=== PATIENT | female | born 1985 | race Caucasian/White ===

== ENCOUNTER 2020-07-02 17:16 | Emergency (ER) | payer OTHER, SELFPAY ==
--- NOTE | 2020-07-02 17:21 | ED.URI ---
HPI - URI/Sore Throat General Chief Complaint: Upper Respiratory Infection Stated Complaint: COUGH/CONGESTION/TIGHT CHEST Source: patient and RN notes reviewed Limitations: no limitations History of Present Illness HPI Narrative: The patient-- a smoker/nondrinker here with other sick, febrile [100F] family members-- presents with cough. Patient states boyfriend, roommates and she has 1/2-week history of nasal congestion and cough. No fever, vomiting/diarrhea, loss of taste/smell, wheezing, CP, travel, shortness of breath. She has not had Covid vaccination; symptoms are mild, worse at night Related Data Allergies Allergy/AdvReac Type Severity Reaction Status Date / Time Sulfa (Sulfonamide Allergy Unknown unknown Verified 07/02/20 17:22 Antibiotics) Review of Systems Review of Systems: Narrative: General/Constitutional: No weight loss,fever Eyes: N0: Redness,discharge Ears/Nose/Throat: No: Epistaxis,ear discharge Respiratory: Denies: Hemoptysis Gastrointestinal: No Vomiting, Bleeding-rectal Skin: No Lumps, eruption Neurologic: No Focal Weakness,Sz Hematologic: Denies: Petechiae/Purpura Psychiatric: No: Suicida ideationl All Other Systems: Reviewed and Negative PMFSH Past Medical History Medical History ADD (attention deficit disorder) ADHD Anxiety Diabetes Gestational HTN No pertinent family history Vaginal delivery Surgical History Surgical History Hx of tonsillectomy Social History Social History Smoking status: Current every day smoker Tobacco type: cigarettes Second hand tobacco smoke exposure: Yes Alcohol intake: never Substance use: former Substance use type: marijuana Gender identity (if verbalized by the patient): Female Spiritual care concerns: No Agree to blood products: Yes Comments At time of signature, agree with nursing past medical, surgical, social and family history. There is no relevant family history pertinent to the presenting complaint Exam Narrative: Exam Narrative: General Appearance: Well appearing, overweight/well nourished EYE: PERRLA, Conjunctiva clear Ears: Auditory canal normal, TM normal Nose: Rhinorrhea, Mucousal erythema Mouth/Throat: MM moist, Uvula midline, Pharyngeal erythema Neck: Supple, No adenopathy Respiratory: No respiratory distress, Breath sounds equal, Clear to auscultation Cardiovascular: RRR, No JVD Musculoskeletal: Non tender, Normal strength Skin: Warm, Dry Neurological: A&O x3, CN II-XII intact Psychiatric: Normal mood, Normal affect Course Vital Signs Vital signs: Vital Signs Temperature 98.7 F 07/02/20 17:22 Pulse Rate 94 07/02/20 17:22 Respiratory Rate 16 07/02/20 17:22 Blood Pressure 110/87 07/02/20 17:22 Pulse Oximetry 99 07/02/20 17:22 Temperature 98.7 F 07/02/20 17:22 Pulse Rate 94 07/02/20 17:22 Respiratory Rate 16 07/02/20 17:22 Blood Pressure 110/87 07/02/20 17:22 Pulse Oximetry 99 07/02/20 17:22 MDM - URI/Sore Throat Lab Data Labs: Lab Results 07/02/20 Range/Units 17:31 POC SARS CoV-2 Ag Negative (Negative) Influenza A Screen Negative Reference Range: Negative Influenza B Screen Negative Reference Range: Negative Discharge Plan Discharge Clinical Impression: Upper respiratory infection Patient Disposition: Home, Self-Care Condition: Stable Instructions: Antibiotic Form, Acute Bronchitis (ED) Additional Instructions: You may try OTC preparations like Flonase, Mucinex, etc. Also consider OTC supplements like vitamins jayce D,and B, C, zinc Prescriptions: New codeine-guaifenesin 10-100 mg/5 mL liquid 7.5 ml PO Q6H PRN
[2020-07-02 17:22] VITALS: BP 110/87; PULSE 94; RESP 16; TEMP 37.1; O2SAT 99
== END 2020-07-02 18:14 | disposition home or self-care (01) ==
PROVIDERS: Emergency Provider Emergency Medicine; PCP Family Medicine
DX: J06.9 Acute upper respiratory infection, unspecified (principal); Z20.822 Contact with and (suspected) exposure to COVID-19; F17.200 Nicotine dependence, unspecified, uncomplicated; E11.9 Type 2 diabetes mellitus without complications; F90.9 Attention-deficit hyperactivity disorder, unspecified type
CPT/HCPCS: 87426; 87804; 99213; C9803; G0463

== ENCOUNTER → 2020-07-18 06:28 | Outpatient (CLI) | payer OTHER, SELFPAY ==
[2020-07-21 12:03] LABS: SARS-CoV-2 RNA PCR Positive
== END ==
PROVIDERS: Emergency Medicine; PCP Family Medicine; Visit Provider Family Medicine
DX: U07.1 COVID-19 (principal); J40 Bronchitis, not specified as acute or chronic; R05 Cough
CPT/HCPCS: C9803; U0003; U0005

== ENCOUNTER 2020-09-02 21:17 | Emergency (ER) | payer OTHER, SELFPAY ==
--- NOTE | ~2020-09-02 | XR_ITS ---
EXAMINATION: XR chest 2V 09/02/2020 22:13 INDICATION: Cough and chest pain PROCEDURE: 2 view chest COMPARISON: 12/05/2015 FINDINGS: The lungs are clear. The cardiomediastinal silhouette is within normal limits. There are no pleural effusions. There is no pneumothorax suspected. IMPRESSION: 1: NO ACUTE CARDIOPULMONARY DISEASE. Reviewed, dictated and finalized at location A.
[2020-09-02 21:33] VITALS: BP 125/92; PULSE 98; RESP 18; TEMP 37.1; O2SAT 100
[2020-09-02 21:37] VITALS: BP 139/84; PULSE 95; RESP 16; TEMP 36.8; O2SAT 98
--- NOTE | 2020-09-02 22:25 | ED.GENADULT ---
HPI - General Adult General Chief complaint: Shortness of Breath/Dyspnea Stated complaint: i think i have pneumonia Time Seen by Provider: 09/02/20 21:52 Source: patient Mode of arrival: ambulatory Limitations: no limitations History of Present Illness HPI narrative: 35-year-old with no major medical problems chronic marijuana smoker here with complaints of left-sided chest pain started few days ago. Patient states every time she moves or coughs she has pain in the left side of her chest. She denies any shortness of breath. No history of fever. She states that she had Covid in June. Onset (ago): day(s) (3) Radiation: back Severity: mild Quality: aching Pain Consistency: constant Relieving factors: none Exacerbating factors: movement Associated symptoms: denies other symptoms Related Data Allergies Allergy/AdvReac Type Severity Reaction Status Date / Time Sulfa (Sulfonamide Allergy Unknown unknown Verified 09/02/20 21:39 Antibiotics) Review of Systems Review of Systems: All systems reviewed & are unremarkable except as noted in HPI and below Constitutional: Constitutional: Reports no additional constitutional complaints Eyes: Eyes: Reports no additional eye complaints ENT: Reports system reviewed and no additional complaints, except as documented Cardiovascular: Cardiovascular: Reports no additional cardiovascular complaints Respiratory: Respiratory: Reports as per HPI Gastrointestinal: Gastrointestinal: Reports no additional gastrointestinal complaints PMFSH Past Medical History Medical History ADD (attention deficit disorder) ADHD Anxiety Diabetes Gestational HTN No pertinent family history Vaginal delivery Surgical History Surgical History Hx of tonsillectomy Social History Social History Smoking status: Current every day smoker Tobacco type: cigarettes Second hand tobacco smoke exposure: Yes Alcohol intake: never Substance use: former Substance use type: marijuana Gender identity (if verbalized by the patient): Female Spiritual care concerns: No Agree to blood products: Yes Exam Narrative: Exam Narrative: GENERAL: Well-appearing, well-nourished, and in no acute distress. HEAD: Normocephalic, atraumatic. EYES: PERRLA and EOMI.. NECK: Supple. CHEST: No respiratory distress. Coarse breath sounds bilaterally HEART: Regular rate and rhythm. No murmur heard. Normal peripheral pulses. EXTREMITIES: Normal range of motion. No edema. SKIN: Warm, dry, no rash. NEURO: No focal deficits. Alert and oriented x3. PSYCH: Normal mood and affect. Course Course Emergency Course: Inform patient about her chest x-ray. Her pain most likely is musculoskeletal at this time. Advised her to take pain medication as prescribed. Vital Signs Vital signs: Vital Signs Temperature 37.1 C 09/02/20 21:33 Pulse Rate 98 09/02/20 21:33 Respiratory Rate 18 09/02/20 21:33 Blood Pressure 125/92 H 09/02/20 21:33 Pulse Oximetry 100 09/02/20 21:33 Temperature 36.8 C 09/02/20 21:37 Pulse Rate 95 09/02/20 21:37 Respiratory Rate 16 09/02/20 21:37 Blood Pressure 139/84 09/02/20 21:37 Pulse Oximetry 98 09/02/20 21:37 Medical Decision Making Vital Signs Vital Signs: Vital Signs Temperature 37.1 C 09/02/20 21:33 Pulse Rate 98 09/02/20 21:33 Respiratory Rate 18 09/02/20 21:33 Blood Pressure 125/92 H 09/02/20 21:33 Pulse Oximetry 100 09/02/20 21:33 Temperature 36.8 C 09/02/20 21:37 Pulse Rate 95 09/02/20 21:37 Respiratory Rate 16 09/02/20 21:37 Blood Pressure 139/84 09/02/20 21:37 Pulse Oximetry 98 09/02/20 21:37 Imaging Data My impression: No acute findings Radiologist's impression: ITS Impressions Chest X-Ray 09/02/20 22:15 IMPRESSION: 1: NO ACUTE CARD
[2020-09-02 22:40] VITALS: BP 125/85; PULSE 84; RESP 16; O2SAT 99
== END 2020-09-02 22:42 | disposition home or self-care (01) ==
PROVIDERS: Emergency Provider Family Medicine; PCP Family Medicine
DX: R07.89 Other chest pain (principal); E11.9 Type 2 diabetes mellitus without complications; Z86.16 Personal history of COVID-19; F90.9 Attention-deficit hyperactivity disorder, unspecified type; F41.9 Anxiety disorder, unspecified; F17.210 Nicotine dependence, cigarettes, uncomplicated
CPT/HCPCS: 71046; 99283

== ENCOUNTER 2021-12-07 17:07 | Emergency (ER) | payer OTHER, SELFPAY ==
[2021-12-07 17:25] VITALS: BP 134/83; PULSE 84; RESP 16; TEMP 36.3; O2SAT 100
--- NOTE | 2021-12-07 18:51 | ED.URI ---
HPI - URI/Sore Throat General Chief Complaint: Upper Respiratory Infection Stated Complaint: coughing, painful breathing, congestion Time Seen by Provider: 12/07/21 18:50 Source: patient Mode of arrival: ambulatory Limitations: no limitations History of Present Illness HPI Narrative: 36-year-old female who presents to [facility] care with complaints of 3-day history of congestion increased cough no fever some tightness in chest with inspiration and increased cough when she lies flat at night. Patient is a daily tobacco user and also smokes marijuana. Patient reports that she had COVID in June of 2019, has not had COVID vaccination or flu shot. MD elicited complaint: cough Pertinent past history: other (tobacco and marijuana use daily) Onset (ago): day(s) (3) Exacerbating factors: exertion and supine positioning Treatments prior to arrival: none Related Data Allergies Allergy/AdvReac Type Severity Reaction Status Date / Time Sulfa (Sulfonamide Allergy Unknown unknown Verified 12/07/21 17:24 Antibiotics) Review of Systems Review of Systems: CONSTITUTIONAL: Denies malaise, chills, sweats, or fever. EYES: Denies visual changes, redness, or discharge. ENT: Reports rhinorrhea, congestion,no sinus pain, otalgia and sore throat. CARDIOVASCULAR: Denies chest pain, palpitations, or edema. RESPIRATORY: Reports cough.? reports some tightness to chest with cough and increased cough when laying supine. GASTROINTESTINAL: Denies abdominal pain, nausea, vomiting, diarrhea SKIN: Denies rash or itching. MUSCULOSKELETAL: Denies myalgia. NEUROLOGIC: Denies headache. All systems reviewed & are unremarkable except as noted in HPI and below PMFSH Past Medical History Medical History ADD (attention deficit disorder) ADHD Anxiety Diabetes Gestational HTN No pertinent family history Vaginal delivery Surgical History Surgical History Hx of tonsillectomy Social History Social History (Updated 12/10/21 @ 10:56 by Viri Jacobson NP) Smoking status: Current every day smoker Tobacco type: cigarettes Second hand tobacco smoke exposure: Yes Alcohol intake: never Substance use: current Substance use type: marijuana Living arrangements: with family Gender identity (if verbalized by the patient): Female Sexual Orientation (if Verbalized by the Patient): Straight or Heterosexual Spiritual care concerns: No Agree to blood products: Yes Comments At time of signature, agree with nursing past medical, surgical, social and family history. There is no relevant family history pertinent to the presenting complaint Exam Narrative: GENERAL: Well-appearing, well-nourished, and in no acute distress. HEAD: Normocephalic EYES: PERRLA, conjunctivae clear ENT: Nares clear, turbinates edematous and erythematous, clear discharge. Mucous membranes moist. TM pearly benito with dull light reflex bilaterally; no tragal tenderness. Oropharynx erythematous without lesions.no tonsils present, no drooling, no hoarseness, no trismus, uvula midline.post nasal discharge noted NECK: Supple. No lymphadenopathy CHEST: Clear to auscultation, breath sounds equal. some wheezing,no rhonchi, rales, or stridor. No respiratory distress, speaks in full sentences.no tachypnea SAO2 100% on room air HEART: Regular rate and rhythm. No murmur heard. SKIN: Warm, dry, no rash. NEURO: Alert and oriented x3. PSYCH: Normal mood and affect Course Course Emergency Course: Patient is aware of diagnosis, understands and agrees to treatment plan.? Anticipatory guidance given.? Patient agrees to follow-up as directed and is aware of reasons to seek care at the emergency department. Portions of this record may have been created with voice recognition software Level of Care: Express Care Visit Vital Signs Vital signs: Vital Signs
== END 2021-12-07 19:24 | disposition home or self-care (01) ==
PROVIDERS: Emergency Provider Registered Nurse; PCP Family Medicine
DX: J40 Bronchitis, not specified as acute or chronic (principal); Z20.822 Contact with and (suspected) exposure to COVID-19; F17.210 Nicotine dependence, cigarettes, uncomplicated; E11.9 Type 2 diabetes mellitus without complications
CPT/HCPCS: 87426; 99213; C9803; G0463

== ENCOUNTER 2022-02-01 11:30 | Emergency (ER) | payer OTHER, SELFPAY ==
[2022-02-01 12:53] VITALS: BP 139/69; PULSE 90; RESP 20; TEMP 36.2; O2SAT 100
--- NOTE | 2022-02-01 13:28 | ED.URI ---
HPI - URI/Sore Throat General Chief Complaint: Upper Respiratory Infection Stated Complaint: diarrhea,cough,vomiting Time Seen by Provider: 02/01/22 13:28 Source: patient Mode of arrival: ambulatory Limitations: no limitations History of Present Illness HPI Narrative: 36-year-old female presents with complaint of nasal congestion, sore throat, cough, headaches and body aches for 2-3 days. Also reports nausea with diarrhea. No vomiting. Eating and drinking normally. Has been fatigued and sleeping more than usual. States [id number] cough medications not helping. Has felt feverish at home but does not have thermometer to check temperature. Patient well-appearing and talkative. All systems reviewed and negative except as noted above. Related Data Allergies Allergy/AdvReac Type Severity Reaction Status Date / Time Sulfa (Sulfonamide Allergy Unknown unknown Verified 12/07/21 17:24 Antibiotics) Review of Systems Review of Systems: CONSTITUTIONAL: Denies fever, chills, or sweats. Reports fatigue. EYES: Denies visual changes, redness, or discharge. ENT: Reports rhinorrhea, congestion, sore throat. Deniesotalgia. CARDIOVASCULAR: Denies chest pain, palpitations, or edema. RESPIRATORY: reports cough. Deniesdyspnea. GASTROINTESTINAL: Denies abdominal pain, nausea, vomiting. Reports diarrhea. GENITOURINARY: Denies dysuria or hematuria. SKIN: Denies rash or itching. MUSCULOSKELETAL: Denies back pain, joint pain, or myalgia. NEUROLOGIC: Denies headache, numbness, or weakness. PSYCHIATRIC: Denies anxiety or depression. All other systems reviewed are negative, except as documented in HPI. [facility] Past Medical History Medical History ADD (attention deficit disorder) ADHD Anxiety Diabetes Gestational HTN No pertinent family history Vaginal delivery Surgical History Surgical History Hx of tonsillectomy Social History Social History (Updated 12/10/21 @ 10:56 by Viri Jacobson NP) Smoking status: Current every day smoker Tobacco type: cigarettes Second hand tobacco smoke exposure: Yes Alcohol intake: never Substance use: current Substance use type: marijuana Gender identity (if verbalized by the patient): Female Sexual Orientation (if Verbalized by the Patient): Straight or Heterosexual Spiritual care concerns: No Agree to blood products: Yes Comments At time of signature, agree with nursing past medical, surgical, social and family history. There is no relevant family history pertinent to the presenting complaint. Exam Narrative: GENERAL: This is a well-nourished, well-developed patient, in no apparent distress. HEAD: normocephalic, atraumatic. EYES: PERRL. Sclera clear/white. Vision is grossly intact. EARS: External ears normal, auditory canals clear and without drainage, TMs normal without perforation. Hearing grossly intact. NOSE: External nose normal with mild congestion, erythema and swelling to both nares. THROAT: Mucous membranes moist, Mild erythema to posterior pharynx. NECK: Neck supple, non-tender without lymphadenopathy, masses or thyromegaly. CARDIOVASCULAR: Regular rate and rhythm without murmurs, gallops, or rubs. RESPIRATORY: Clear to auscultation. Breath sounds equal bilaterally. No wheezes, rales, or rhonchi. GASTROINTESTINAL: Abdomen soft, non-tender, nondistended. Bowel sounds are active. No hepato-splenomegaly, or palpable masses. No guarding. SKIN: warm, Dry, intact with no suspicious lesions or rash, good texture and turgor. NEURO: awake, alert, and oriented to person, place and time. There were no obvious focal neurologic abnormalities. EXTREMITIES: No joint tenderness, effusion, or edema noted. Course Course Level of Care: Express Care Visit Vital Signs Vital signs: Vital Signs Temperature 36.2 C L 02/01/22 12:53 Pulse Rate 90
== END 2022-02-01 13:45 | disposition home or self-care (01) ==
PROVIDERS: Emergency Provider Nurse Practitioner Family
DX: B34.9 Viral infection, unspecified (principal); Z20.822 Contact with and (suspected) exposure to COVID-19
CPT/HCPCS: 87426; 99213; C9803; G0463

== ENCOUNTER 2022-07-14 16:04 | Emergency (ER) | payer OTHER, SELFPAY ==
[2022-07-14 16:12] VITALS: BP 123/98; PULSE 89; RESP 16; TEMP 36.8; O2SAT 100
--- NOTE | 2022-07-14 16:20 | ED.URI ---
HPI - URI/Sore Throat General Chief Complaint: Upper Respiratory Infection Stated Complaint: Sore Throat Time Seen by Provider: 07/14/22 16:21 Source: patient Mode of arrival: ambulatory Limitations: no limitations History of Present Illness HPI Narrative: Patient is a 37-year-old female who presents cough and congestion for 3 days. Patient has taken Tylenol and ibuprofen for symptoms with no relief. States she does vape. Cough is worse in the evening. Denies any fever, chills, nausea, vomiting, diarrhea, ear pain, sinus pressure, sore throat. Patient states significant other was recently ill and given antibiotics. Unsure why he was sick with. Related Data Allergies Allergy/AdvReac Type Severity Reaction Status Date / Time Sulfa (Sulfonamide AdvReac Mild Hives Verified 07/14/22 16:12 Antibiotics) Review of Systems Review of Systems: All systems reviewed & are unremarkable except as noted in HPI and below Constitutional: Constitutional: Denies body ache(s), Denies chills, Denies fatigue, Denies fever(s), Denies headache(s), Denies malaise and Denies weakness Eyes: Eyes: Denies blurry vision, Denies itchy eyes and Denies loss of vision ENT: Denies otalgia, Denies headache(s), Reports nasal congestion, Denies sinus pain and Denies sore throat Cardiovascular: Cardiovascular: Denies chest pain, Denies irregular heart rhythm and Denies dyspnea Respiratory: Respiratory: Reports cough and Denies dyspnea Gastrointestinal: Gastrointestinal: Denies abdominal pain, Denies diarrhea, Denies nausea and Denies vomiting Musculoskeletal: Musculoskeletal: Denies back pain, Denies myalgias and Denies arthralgias Integumentary/Breasts: Skin/Breast: Denies pruritus and Denies rash Neurologic: Denies headache(s), Denies loss of vision and Denies weakness Psychiatric: Psychiatric: Reports no additional psychiatric complaints Endocrine: Endocrine: Denies fatigue Allergic/Immunologic: Allergic/Immunologic: Denies itchy eyes PMFSH Past Medical History Medical History (Updated 07/14/22 @ 16:57 by Otilia Pavon APRN) ADD (attention deficit disorder) ADHD Anxiety Gestational HTN No pertinent family history Vaginal delivery Surgical History Surgical History Hx of tonsillectomy Family History Family History (Updated 06/15/22 @ 09:45 by Vanna Chandler MA) Grandparent Heart disease Social History Social History (Updated 06/15/22 @ 09:47 by Vanna Chandler MA) Smoking status: Current every day smoker Tobacco type: e-cigarettes/vaping Second hand tobacco smoke exposure: Yes Smoking end date: 05/12/22 Alcohol intake: current Alcohol use details: rarely Substance use: current Substance use type: marijuana Lack of Transportation: No Lack of Food: Sometimes True Current Housing: I Do Not Have Housing Concerned About Future Housing: No Difficulty Paying Gas/Electric Bills: No Difficulty Paying for Meds: No Currently Unemployed: No Education: High School Diploma/GED Difficulty w/ Childcare or Family Care: No Living arrangements: with family Additional living arrangements comments: Grandparents Occupation/Education: unemployed Gender identity (if verbalized by the patient): Female Sexual Orientation (if Verbalized by the Patient): Straight or Heterosexual Spiritual care concerns: No Agree to blood products: Yes Comments At time of signature, agree with nursing past medical, surgical, social and family history. There is no relevant family history pertinent to the presenting complaint. Exam Const: General: cooperative, healthy appearing, comfortable, no acute distress and well nourished Nutritional Appearance: well nourished Orientation/consciousness: patient oriented x3 Limitations: no limitations HENMT: Head: normal to inspection, normocephalic and atraumatic Ears: hearing grossly normal bilaterally, external
== END 2022-07-14 17:02 | disposition home or self-care (01) ==
PROVIDERS: Emergency Provider Nurse Practitioner Family; PCP Internal Medicine
DX: J06.9 Acute upper respiratory infection, unspecified (principal); F17.290 Nicotine dependence, other tobacco product, uncomplicated; F12.90 Cannabis use, unspecified, uncomplicated
CPT/HCPCS: 99213; G0463

== ENCOUNTER 2022-08-05 14:42 | Outpatient (CLI) | payer OTHER, SELFPAY ==
[2022-08-05 15:57] LABS: HIV 1/2 Ab P24 Ag Result Negative (Negative)
[2022-08-05 16:37] LABS: Hepatitis B Surface Antigen Negative (Negative)
[2022-08-05 16:55] LABS: Hepatitis C Virus Antibody Negative (Negative)
[2022-08-08 16:55] LABS: Rapid Plasma Reagin Non-Reactive (NonReactive)
[2022-08-12 18:01] LABS: HSV 1 IgM Screen Negative (Negative); HSV 2 IgM Screen Negative (Negative)
== END 2022-08-05 14:43 | disposition home or self-care (01) ==
LOC: ANHLAB 14:44
PROVIDERS: PCP Internal Medicine; Visit Provider Registered Nurse
DX: N89.8 Other specified noninflammatory disorders of vagina (principal)
CPT/HCPCS: 36415; 86592; 86695; 86696; 86703; 86803; 87340; G0432

== ENCOUNTER 2022-11-19 09:27 | Emergency (ER) | payer OTHER, SELFPAY ==
[2022-11-19 09:38] VITALS: BP 108/86; PULSE 82; RESP 18; TEMP 36.6; O2SAT 99
[2022-11-19 09:39] VITALS: BP 108/86; PULSE 82; RESP 18; TEMP 36.6; O2SAT 99
--- NOTE | 2022-11-19 09:50 | ED.GENADULT ---
HPI - General Adult General Chief complaint: Ear Stated complaint: Lt Ear Irritation Time Seen by Provider: 11/19/22 09:51 Source: patient, RN notes reviewed and old records reviewed Mode of arrival: ambulatory Limitations: no limitations History of Present Illness HPI narrative: 37-year-old female presents to the [facility] with left ear irritation that started 3 days ago. Reports pain. States she has been using Q-tips to keep her ears clean of wax. Patient also reports lateral swelling to the left ankle that she states that she sprained about a month ago on the 22 of October. Mild swelling noted. No ecchymosis or erythema. Full range of motion, positive pedal pulse, capillary refill under 2 seconds as well as sensation intact in all 5 toes Related Data Allergies Allergy/AdvReac Type Severity Reaction Status Date / Time Sulfa (Sulfonamide AdvReac Mild Hives Verified 11/19/22 09:38 Antibiotics) Review of Systems Review of Systems: All systems reviewed & are unremarkable except as noted in HPI and below Constitutional: Constitutional: Reports no additional constitutional complaints Eyes: Eyes: Reports no additional eye complaints ENT: Reports as per HPI Cardiovascular: Cardiovascular: Reports no additional cardiovascular complaints, Denies chest pain and Denies dyspnea Respiratory: Respiratory: Reports no additional respiratory complaints, Denies chest congestion, Denies cough and Denies dyspnea Gastrointestinal: Gastrointestinal: Reports no additional gastrointestinal complaints, Denies abdominal pain, Denies nausea and Denies vomiting Musculoskeletal: Musculoskeletal: Reports as per HPI Integumentary/Breasts: Skin/Breast: Reports system reviewed and no additional complaints, except as docu Neurologic: Reports system reviewed and no additional complaints, except as documented Psychiatric: Psychiatric: Reports no additional psychiatric complaints Allergic/Immunologic: Allergic/Immunologic: Reports no additional allergic/immunologic complaints [facility] Past Medical History Medical History ADD (attention deficit disorder) ADHD Anxiety Gestational HTN HSV-2 (herpes simplex virus 2) infection Vaginal delivery Surgical History Surgical History Hx of tonsillectomy Family History Family History Grandparent Heart disease Social History Social History Smoking status: Current every day smoker Tobacco type: e-cigarettes/vaping Second hand tobacco smoke exposure: Yes Smoking end date: 05/12/22 Alcohol intake: current Alcohol use details: rarely Substance use: current Substance use type: marijuana Lack of Transportation: No Lack of Food: Sometimes True Current Housing: I Do Not Have Housing Concerned About Future Housing: No Difficulty Paying Gas/Electric Bills: No Difficulty Paying for Meds: No Currently Unemployed: YES Education: High School Diploma/GED Difficulty w/ Childcare or Family Care: No Living arrangements: with family Additional living arrangements comments: Grandparents Occupation/Education: occupation Additional occupation/education comments: [employer] Gender identity (if verbalized by the patient): Female Sexual Orientation (if Verbalized by the Patient): Bisexual Spiritual care concerns: No Agree to blood products: Yes Comments At the time of my signature, I reviewed and agree with the nursing past medical, surgical, social, and family history. There is no relevant family history pertinent to the patient complaint. Exam Const: General: cooperative, healthy appearing, comfortable, no acute distress, well developed, alert and well nourished Nutritional Appearance: well nourished Orientation/consciousness: laura
== END 2022-11-19 10:07 | disposition home or self-care (01) ==
PROVIDERS: Emergency Provider Nurse Practitioner
DX: S00.412A Abrasion of left ear, initial encounter (principal); L08.9 Local infection of the skin and subcutaneous tissue, unspecified; X58.XXXA Exposure to other specified factors, initial encounter; S93.402A Sprain of unspecified ligament of left ankle, initial encounter; F17.290 Nicotine dependence, other tobacco product, uncomplicated; Z20.822 Contact with and (suspected) exposure to COVID-19; F12.90 Cannabis use, unspecified, uncomplicated
CPT/HCPCS: 87426; 99213; C9803; G0463

== ENCOUNTER 2023-10-27 10:22 | Emergency (ER) | payer OTHER, SELFPAY ==
[2023-10-27 10:42] VITALS: BP 133/83; PULSE 98; RESP 18; TEMP 36.8; O2SAT 100
[2023-10-27 10:59] LABS: EDINFLUASCREEN Negative; EDINFLUBSCREEN Negative; EDSTREPNEGPOS1 Negative
--- NOTE | 2023-10-27 11:11 | ED.URI ---
HPI - URI/Sore Throat General Chief Complaint: Upper Respiratory Infection Stated Complaint: Sore Throat / Cough Time Seen by Provider: 10/27/23 11:11 Source: patient Mode of arrival: ambulatory Limitations: no limitations History of Present Illness HPI Narrative: 38-year-old female presents with complaint of sore throat, fatigue, body aches and cough for 2 days. 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 No chest pain or shortness breath. Denies nausea vomiting diarrhea. Patient has not taking any [id number] medications to treat her symptoms. All systems reviewed and negative except as noted above. Related Data Allergies Allergy/AdvReac Type Severity Reaction Status Date / Time Sulfa (Sulfonamide Allergy Mild Hives Verified 10/27/23 10:40 Antibiotics) Review of Systems Review of Systems: CONSTITUTIONAL: Denies fever, chills, or sweats. Reports fatigue. EYES: Denies visual changes, redness, or discharge. ENT: Denies rhinorrhea, congestion . Reports sore throat. Denies otalgia. CARDIOVASCULAR: Denies chest pain, palpitations, or edema. RESPIRATORY reports cough . Denies dyspnea. GASTROINTESTINAL: Denies abdominal pain, nausea, vomiting, or diarrhea. GENITOURINARY: Denies dysuria or hematuria. SKIN: Denies rash or itching. MUSCULOSKELETAL: Denies back pain, joint pain, or myalgia. NEUROLOGIC: Denies headache, numbness, or weakness. PSYCHIATRIC: Denies anxiety or depression. All other systems reviewed are negative, except as documented in HPI. [facility] Past Medical History Medical History ADD (attention deficit disorder) ADHD Anxiety Gestational HTN HSV-2 (herpes simplex virus 2) infection Vaginal delivery Surgical History Surgical History Hx of tonsillectomy Family History Family History Grandparent Heart disease Social History Social History Smoking status: Current every day smoker Tobacco type: e-cigarettes/vaping Second hand tobacco smoke exposure: Yes Smoking end date: 05/12/22 Alcohol intake: current Alcohol use details: rarely Substance use: current Substance use type: marijuana Lack of Transportation: No Lack of Food: Sometimes True Current Housing: I Do Not Have Housing Concerned About Future Housing: No Difficulty Paying Gas/Electric Bills: No Difficulty Paying for Meds: No Currently Unemployed: YES Education: High School Diploma/GED Difficulty w/ Childcare or Family Care: No Living arrangements: with family Additional living arrangements comments: Grandparents Occupation/Education: occupation Additional occupation/education comments: [employer] Gender identity (if verbalized by the patient): Female Sexual Orientation (if Verbalized by the Patient): Bisexual Spiritual care concerns: No Agree to blood products: Yes Comments At time of signature, agree with nursing past medical, surgical, social and family history. There is no relevant family history pertinent to the presenting complaint. Exam Narrative: GENERAL: This is a well-nourished, well-developed patient, in no apparent distress. HEAD: normocephalic, atraumatic. EYES: PERRL. Sclera clear/white. Vision is grossly intact. EARS: External ears normal, auditory canals clear and without drainage, TMs normal without perforation. Hearing grossly intact. NOSE: External nose normal with clear nasal drainage THROAT: Mucous membranes moist, mild erythema with clear postnasal drainage NECK: Neck supple, non-tender without lymphadenopathy, masses or thyromegaly. CARDIOVASCULAR: Regular rate and rhythm without murmurs, gallops, or rubs. RESPIRATORY: Clear to aus
== END 2023-10-27 11:24 | disposition home or self-care (01) ==
PROVIDERS: Emergency Provider Nurse Practitioner Family
DX: J06.9 Acute upper respiratory infection, unspecified (principal); R05.9 Cough, unspecified; Z20.822 Contact with and (suspected) exposure to COVID-19; F17.290 Nicotine dependence, other tobacco product, uncomplicated
CPT/HCPCS: 87081; 87426; 87804; 87880; 99213; G0463

== ENCOUNTER 2023-12-05 13:03 | Emergency (ER) | payer OTHER, SELFPAY ==
--- NOTE | 2023-12-05 13:05 | ED.URI ---
HPI - URI/Sore Throat General Chief Complaint: Upper Respiratory Infection Stated Complaint: Cough Time Seen by Provider: 12/05/23 13:04 Source: patient Mode of arrival: ambulatory Limitations: no limitations History of Present Illness HPI Narrative: Rabia is a 38-year-old female patient presenting to the clinic today with complaints of a sinus pressure, nasal congestion, productive cough x2-3 weeks. She reports no chest pain or shortness of breath. States the cough is keeping her up at night. Reports the phlegm is green and yellow in nature and she is coughing up phlegm as well as blowing drainage out of her nose. MD elicited complaint: sore throat and nasal congestion Related Data Allergies Allergy/AdvReac Type Severity Reaction Status Date / Time Sulfa (Sulfonamide AdvReac Mild Hives Verified 12/05/23 13:06 Antibiotics) Review of Systems Review of Systems: Pertinent positives per HPI. Patient denies any fever, chills, rash, visual changes, dizziness, shortness of breath, chest pain, palpitations, nausea, vomiting, diarrhea, constipation, abdominal pain, or any urinary issues. [facility] Past Medical History Medical History ADD (attention deficit disorder) ADHD Anxiety Gestational HTN HSV-2 (herpes simplex virus 2) infection Vaginal delivery Surgical History Surgical History Hx of tonsillectomy Family History Family History Grandparent Heart disease Social History Social History Smoking status: Current every day smoker Tobacco type: e-cigarettes/vaping Second hand tobacco smoke exposure: Yes Smoking end date: 05/12/22 Alcohol intake: current Alcohol use details: rarely Substance use: current Substance use type: marijuana Lack of Transportation: No Lack of Food: Sometimes True Current Housing: I Do Not Have Housing Concerned About Future Housing: No Difficulty Paying Gas/Electric Bills: No Difficulty Paying for Meds: No Currently Unemployed: YES Education: High School Diploma/GED Difficulty w/ Childcare or Family Care: No Living arrangements: with family Additional living arrangements comments: Grandparents Occupation/Education: occupation Additional occupation/education comments: [employer] Gender identity (if verbalized by the patient): Female Sexual Orientation (if Verbalized by the Patient): Bisexual Spiritual care concerns: No Agree to blood products: Yes Comments At the time of my signature, I reviewed and agree with the nursing past medical, surgical, social, and family history. There is no relevant family history pertinent to the patient complaint. Exam Narrative: General: Well-developed, obese, in no apparent distress Head: Normocephalic, atraumatic Eyes: Pupils equally round and reactive to light bilaterally, EOM intact, sclera and conjunctive clear, no discharge, lids normal Ears: TMs intact and congested, ear canals clear, no drainage, grossly hearing normal. Nose: Nares patent, yellow nasal discharge, moderate inflammation, maxillary sinus tenderness. Mouth: Oral pharynx without lesions or masses, good dentition, MMM. Neck: Supple, trachea midline, no enlargement of anterior or posterior cervical nodes, no thyroid masses or goiter palpable. Cardio: Regular rate and rhythm, s1 and s2 normal, no murmur appreciated. Resp: Diminished in the bases otherwise clear, no rhonchi, rales, wheezing or rubs Course Course Emergency Course: Portions of this record may have been created with voice recognition software. Level of Care: Express Care Visit Vital Signs Vital signs: Vital signs reviewed MDM - URI/Sore Throat MDM Narrative Medical decision making narrative: At the time of
[2023-12-05 13:12] VITALS: BP 110/75; PULSE 94; RESP 17; TEMP 36.7; O2SAT 100
== END 2023-12-05 13:23 | disposition home or self-care (01) ==
PROVIDERS: Emergency Provider Nurse Practitioner Family
DX: J32.9 Chronic sinusitis, unspecified (principal); J40 Bronchitis, not specified as acute or chronic; F17.290 Nicotine dependence, other tobacco product, uncomplicated; F12.90 Cannabis use, unspecified, uncomplicated
CPT/HCPCS: 99213; G0463

== ENCOUNTER 2024-05-22 16:25 | Outpatient (CLI) | payer OTHER, SELFPAY ==
--- NOTE | ~2024-05-22 | US_ITS ---
EXAMINATION: US OB <=14 wk fetus w TV DATE: 05/22/2024 17:21 INDICATION: with inconclusive viability during first trimester TECHNIQUE: Real-time pelvic ultrasound utilizing both a transvaginal and transabdominal probe was pe rformed. The interpreting radiologist was not present for the study. COMPARISON: None. FINDINGS: The uterus measures 9.4 x 6.5 x 4.9 cm. There is an intrauterine gestational sac. A yolk sac and fet al pole are identified. The crown rump length measures 10 mm, which correlates with an estimated gest ational age of 7 weeks and 1 days. heart motion is identified measuring 145 beats per minute (b pm) by M-mode Doppler. 1.2 cm anechoic nabothian cyst at the cervix. The right ovary measures 3.1 x 2.5 x 2.3 cm. Subtle hypoechoic 2.0 cm likely corpus luteum cyst in th e right ovary. Vascular flow identified in the right ovary on color Doppler. The left ovary is not vi sualized. There is no free fluid in the pelvis. IMPRESSION: 1. Single living fetus with heart rate of 145 bpm. 2. Gestational age by ultrasound of 7 weeks 1 day(s) +/- 5 day(s) with ultrasound estimated date of delivery ([facility]) of 01/07/2025. Reviewed, dictated and finalized at location B. IMPRESSION: 1. Single living fetus with heart rate of 145 bpm. 2. Gestational age by ultrasound of 7 weeks 1 day(s) +/- 5 day(s) with ultraso und estimated date of delivery ([facility]) of 01/07/2025.
--- OUTSIDE RECORDS SUMMARY | 2024-05-22 17:11 | XMS_ITS | Clinical Summary ---
Author Organization [facility] Address [facility] [place] [address] Care Team Providers Care Test And Balance Engineer Name Role Phone None, Provider MD Primary Care Provider Unavaila ble Allergies Active Allergy Reactions Criticality Noted Date Comments Sulfa Antibiotics Unknown 12/09/2011 Medications amphetamine-dextro amphetamine 20 MG tablet 03/23/2020 Active Social History Tobacco Use Types Packs/Day Years Used Date Smoking Tobacco: Every Day Cigarettes Smokeless Tobacco: Never Alcohol Use Standard Drinks/Week Comments Yes 0 (1 standard drink = 0.6 oz pur e alcohol) socially Comments No Sex and Gender Information Value Date Recorded Sex Assigned at Not on file Legal Sex Female 5:12 PM CDT Gender Identity Not on file Sexual Orientation Not on file Last Filed Vital Signs Vital Sign Reading Time Taken Comments Blood Pressure 142/82 06/07/2023 5:45 AM CDT Pulse 76 06/07/2023 5:45 AM CDT Temperature 36.5 C (97.7 F) 06/07/2023 5:45 AM CDT Respiratory Rate 19 06/07/2023 5:45 AM CDT Oxygen Saturation 98% 06/07/2023 5:45 AM CDT Inhaled Oxygen Concentration - - Weight 113.4 kg (250 lb) 06/07/2023 5:45 AM CDT Height 172.7 cm (5' 8 ) 06/07/2023 5:45 AM CDT Body Mass Index 38.01 06/07/2023 5:45 AM CDT Plan of Treatment Health Maintenance Due Date Last Done Comments Cervical Cancer Screening Pa p Smear (Age 30 to 64) Every 3 Years 1987 Annual Physical 1990 Pneumococcal Vaccine: Pediat rics (0 to 5 Years) and At-Risk Patients (6 to 64 Years) (1 of 2 - PCV) 1993 Hepatitis C 2005 DTaP, Tdap and Td Vaccines ( 1 - Tdap) 2006 Hepatitis B Vaccines (1 of 3 - 19+ 3-dose series) 2006 Cervical Cancer Screening Pa p with HPV Testing (Age 30 to 64) Every 5 Years 2017 Cervical Cancer Screening with HPV 2017 COVID-19 Vaccine ( - 2023-2 5 season) 2023 Influenza Adult (#1) 2023 HPV Vaccines Aged Out No longer eligi ble based on patient's age to complete this topic Meningococcal B Vaccine Aged Out No l onger eligible based on patient's age to complete this topic Meningococcal Vaccine Aged Out No jayjay renate eligible based on patient's age to complete this topic RSV Immunizations Under 20 Months Aged Out No longer eligible based on patient's age to complete this topic Insurance [place] Care Teams Test And Balance Engineer Relationship Specialty Start Date End Date None, Provider, MD PCP - General UNKNOWN PHYSICIAN SPECIALTY 06/07/23
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
== END 2024-05-22 16:26 | disposition home or self-care (01) ==
PROVIDERS: PCP Obstetrics & Gynecology; Visit Provider Nurse Practitioner Family
DX: O36.80X0 Pregnancy with inconclusive fetal viability, not applicable or unspecified (principal); Z3A.00 Weeks of gestation of pregnancy not specified
CPT/HCPCS: 76801; 76817

== ENCOUNTER 2024-07-10 14:58 | Outpatient (CLI) | payer OTHER, SELFPAY ==
--- OUTSIDE RECORDS SUMMARY | 2024-07-10 15:02 | XMS_ITS | Clinical Summary ---
Author Organization [facility] Address [facility] [place] [address] Care Team Providers Care Automobile Taillight Assembler Name Role Phone None, Provider MD Primary [...] Every 3 Years 1987 Annual Physical 1990 Hepatitis C 2005 DTaP, Tdap and Td Vaccines ( 1 - Tdap) 2006 Hepatitis B Vaccines (1 of 3 - 19+ 3-dose series) 2006 Pneumococcal Vaccine: Pediat rics (0 to 5 Years) and At-Risk Patients (6 to 49 Years) (1 of 2 - PCV) 2006 Cervical Cancer Screening Pa p with HPV Testing (Age 30 to 64) Every 5 Years 2017 Cervical Cancer Screening with HPV 2017 COVID-19 Vaccine (1 - 2023-2 5 season) 2023 HPV Vaccines Aged Out No longer [...] patient's age to complete this topic Insurance [place] Care Teams Automobile Taillight Assembler Relationship Specialty Start Date End Date None, Provider, MD PCP - General UNKNOWN PHYSICIAN SPECIALTY 06/07/23
[2024-07-10 15:45] LABS: Hematocrit 36.1 % (37.0-47.0); Hemoglobin 12.1 g/dL (12.0-15.0); Mean Corpuscular HGB Conc 33.5 g/dl (32-36); Mean Corpuscular Hemoglobin 30.1 pg (26-34); Mean Corpuscular Volume 89.8 fl (80-100); Mean Platelet Volume 8.6 fl (7.4-10.4); Platelet Count Result 266 k/mm3 (150-375); Red Blood Count 4.02 M/mm3 (4.2-5.4); Red Cell Distribution Width 12.2 % (11.5-14.5); White Blood Count 10.6 K/mm3 (4.5-10.0)
[2024-07-10 16:21] LABS: Add Urine Microscopic? NO; Appearance Urine Clear (Clear); Bilirubin Urine Negative (Negative); Blood Urine Negative (Negative); Color Urine Yellow (Yellow); Glucose Urine UA Negative (Negative); Ketones Urine Negative (Negative); Leukocyte Esterase Ur Negative LEU/UL (Negative); Nitrate Urine Negative (Negative); Protein Urine Negative (Negative); Specific Grav Ur 1.015 (1.001-1.035); Urobilinogen Urine 0.2 mg/dL (<2.0); pH Urine 5.5 (5.0-9.0)
[2024-07-10 17:19] LABS: HIV 1/2 Ab P24 Ag Result Negative (Negative)
[2024-07-10 17:22] LABS: Syphilis IgG/IgM Antibody Negative (Negative)
[2024-07-10 17:25] LABS: Rubella IgG Antibody 28.5 IU/ML
[2024-07-10 17:46] LABS: Hepatitis B Surface Anti Res Negative; Hepatitis C Virus Antibody Negative (Negative)
[2024-07-11 20:59] LABS: Hemoglobin 12.5 g/dL (11.7-15.5); MCH 31.2 pg (27.0-33.0); MCV 92.3 fL (80.0-100.0); RDW 12.2 % (11.0-15.0); Red Blood Cell Count 4.01 Million/uL (3.80-5.10)
== END 2024-07-10 14:59 | disposition home or self-care (01) ==
LOC: ANHLAB 15:00
PROVIDERS: Visit Provider Obstetrics & Gynecology
DX: Z34.90 Encounter for supervision of normal pregnancy, unspecified, unspecified trimester (principal)
CPT/HCPCS: 36415; 81003; 83021; 84443; 85027; 86593; 86703; 86706; 86762; 86787; 86803; 86850; 86900; 86901; 87086; G0432

== ENCOUNTER 2024-10-16 11:10 | Outpatient (CLI) | payer OTHER, SELFPAY ==
--- OUTSIDE RECORDS SUMMARY | 2024-10-15 09:45 | XMS_ITS | Encounter Summary ---
Author Organization [facility] Address [address] [place] [address] Care Team Providers Care Communications Professor Name Role Phone Unavailable Primary Care Provider Unavailabl e Reason for Referral * (Routine) - Open Specialty Diagnoses / Procedures Referred By Heather meza Referred To Contact Diagnoses History of gestational hypertension Multigravida of advanced maternal age in second trimester (HCC) Encounter for ultrasound to assess growth (HCC) 28 weeks gestation of (HCC) Encounter for follow-up ultrasound of anatomy (HCC) Procedures Sonogram - Complete Yrn Meza MD [address] [place] [address] Phone: tel: fax: Referral ID Status Reason Start Date Expiration Date Visits Re quested Visits Authorized [id number] Open 10/08/2024 10/08/2025 1 1 * (Routine) - Open Specialty Diagnoses / Procedures Referred By Heather meza Referred To Contact Diagnoses History of gestational hypertension Multigravida of advanced maternal age in second trimester (HCC) Encounter for ultrasound to assess growth (HCC) 28 weeks gestation of (HCC) Encounter for follow-up ultrasound of anatomy (HCC) Procedures Sonogram - Complete Yrn Meza MD [address] [place] [address] Phone: tel: fax: Referral ID Status Reason Start Date Expiration Date Visits Re quested Visits Authorized [id number] Open 10/08/2024 10/08/2025 1 1 Reason for Visit * Reason Comments Ultrasound * (Routine) - Open Specialty Diagnoses / Procedures Referred By Heather t Referred To Contact Diagnoses History of gestational hypertension Multigravida of advanced maternal age in second trimester (HCC) Encounter for ultrasound to assess growth (HCC) 28 weeks gestation of (HCC) Encounter for follow-up ultrasound of anatomy (HCC) Procedures Sonogram - Complete Yrn Meza MD [address] [place] [address] Phone: tel: fax: Referral ID Status Reason Start Date Expiration Date Visits Re quested Visits Authorized [id number] Open 10/08/2024 10/08/2025 1 1 Encounter Details Date Type Department Care Team (Latest Contact Info) Description 10/15/2024 9:45 AM CDT - 10/15/2024 11:59 PM CDT Hospital Encounter [facility] Maternal & Care [address] [place] [address] Marques Quezada MD [address] [phone] Discharge Disposition: Home or Self Care Social History Tobacco Use Types Packs/Day Years Used Date Smoking Tobacco: Never Assessed Estimated Date of Delivery Comme nts Yes 01/07/2025 Based on Ultraso und Sex and Gender Information Value Date Recorded Sex Assigned at Not on file 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 Gender Identity Not on file Sexual Orientation Not on file documented as of this encounter Plan of Treatment Not on file documented as of this encounter Procedures Procedure Name Priority Date/Time Associated Diagnosis Comments SONOGRAM - COMPLETE Routine 10/15/2024 9 :55 AM CDT History of gestational hypertension Multigravida of advanced maternal age in second trimester (HCC) Encounter for ultrasound to assess growth (HCC) 28 weeks gestation of (HCC) Encounter for follow-up ultrasound of anatomy (HCC) documented in this encounter Results * Sonogram - Complete (10/15/2024 9:55 AM CDT) Linked Results Indication ======== Screening Follow-Up Incomplete Anatomy Low lying placenta Advanced maternal age (AMA), multigravida History ====== OB History 2. Para 1 T1L1 1. live 2012. Gest. age 38 w + 0 d. Weight 3,713 g. Sex of child: male. Details: GDM, Gestational Hypertension, Preeclampsia Lab Tests Test Date Result NIPT Low risk, Female per patient Maternal Assessment Physical Exam Height 173 cm, 5 ft 8 in. Initial weight 98 kg, 216 lb. Initial BMI 32.84 kg/m Method ====== Transabdominal and transvaginal ultrasound. View: Sufficient ========= Guerrero . Number of fetuses: 1 Dating ====== Date Details Gest. age VERNON Stated VERNON 28 w + 0 d 01/07/2025 Previous U/S 05/22/2024 GA, GA 7 w + 1 d 28 w + 0 d 01/07/2025 U/S 10/15/2024 based upon AC, BPD, Femur, HC 29 w + 2 d 12/29/2024 Assigned dating based on ultrasound (GA), selected on 08/19/2024 28 w + 0 d 01/07/2025 General Evaluation Cardiac activity present. FHR 156 bpm. Presentation: cephalic Placenta: Placental site: posterior. No longer low-lying Umbilical cord: Cord vessels: 3 vessel cord - previously documented. Insertion site: normal insertion - previously documented Amniotic fluid: Amount of AF: normal. MVP 4.8 cm. SERG 10.9 cm. Q1 2.3 cm, Q2 1.5 cm, Q3 4.8 cm, Q4 2.3 cm Biometry BPD 73.5 mm 29w 3d 83% Hadlock HC 270.2 mm 29w 3d 66% Hadlock AC 254.8 mm 29w 5d 87% Hadlock Femur 53.5 mm 28w 3d 46% Hadlock HC / AC 1.06 Weight Calculation: EFW 1,355 g 82% Hadlock EFW (lb,oz) 3 lb 0 oz EFW by Hadlock ([id number]) appropriate Growth Overview Exam date GA BPD (mm) HC (mm) AC (mm) FL (mm) HL (mm) EFW (g) 08/19/2024 19w 6d 45.8 49% 176.7 57% 160.7 84% 33.5 66% 32.3 86% 375 89% 09/17/2024 24w 0d 53.7 3% 215.2 18% 205.7 77% 44.8 63% 41.4 72% 726 73% 10/15/2024 28w 0d 73.5 83% 270.2 66% 254.8 87% 53.5 46% 1355 82% Anatomy The following structures appear normal: Head / Neck Cranium. Right lateral ventricle. Right choroid plexus. Face Lips. Profile. Nose. Nasal bone. Orbits. Heart / Thorax 4-chamber view. RVOT view. LVOT view. 3-vessel view. 0-osadcf-chwkftv view. Situs. Aortic arch view. Bicaval view. Ductal arch view. Great vessels. Abdomen Cord insertion. Stomach. Kidneys. Bladder. Extremities / Skeleton Hands. Left arm. Left foot. The following structures were documented previously: Head / Neck Left lateral ventricle. Left choroid plexus. Midline falx. Cavum septi pellucidi. Cerebellum. Cisterna magna. Heart / Thorax Interventricular septum. Right lung. Left lung. Diaphragm. Abdomen Genitals. Spine Cervical spine. Thoracic spine. Lumbar spine. Sacral spine. Extremities / Skeleton Right arm. Legs. Right foot. sex: female. Maternal Structures Cervix reassuring Approach - Transvaginal: Cervical length 3.40 cm Impression ========= Single, live, intrauterine at 28w 0d The size & amniotic fluid volume are normal No malformations were seen within the limitations of ultrasound Endovaginal U/S: Posterior placenta is 25 mm from cervical os Follow-up ======== if later clinically indicated Coding ====== Diagnoses O09.523: Supervision of elderly multigravida O44.43: Low lying placenta NOS or without hemorrhage Z36.2: Encounter for other screening follow-up Procedures 59573: [place] [address]: US Preg Uterus Transvaginal . [facility] [employer] PACS Anatomical Region Laterality Modality Other 10/15/2024 9:55 AM CDT Yrn Hardy MD [facility] ORDERABLES Edited Result - Final documented in this encounter Visit Diagnoses Diagnosis Encounter for follow-up ultrasound of anatomy (HCC)- Primary History of gestational hypertension Multigravida of advanced maternal age in second trimester (HCC) Encounter for ultrasound to assess growth (HCC) 28 weeks gestation of (HCC) state, incidental Low-lying placenta without hemorrhage (HCC) Placenta previa without hemorrhage, unspecified as to episode of care documented in this encounter
--- OUTSIDE RECORDS SUMMARY | 2024-10-16 11:44 | XMS_ITS | Clinical Summary ---
Author Organization [facility] Address [facility] [place] [address] Care Team Providers Care High [employer] Principal Name Role Phone None, Provider MD Primary [...] 5:45 AM CDT Height 172.7 cm (5' 8) 06/07/2023 5:45 AM CDT Body Mass Index [...] Years) (1 of 2 - PCV) 2006 HPV Vaccines (1 - 3-dose SCD M series) 2014 Cervical Cancer Screening Pa p with HPV Testing (Age 30 to 64) Every 5 Years 2017 Cervical Cancer Screening with HPV 2017 COVID-19 Vaccine ( - 2023-2 5 season) 2023 Meningococcal B Vaccine Aged Out No l onger eligible based on patient's age to complete this topic Meningococcal Vaccine Aged Out No jayjay renate eligible based on patient's age to complete this topic RSV Immunizations Under 20 Months Aged Out No longer eligible based on patient's age to complete this topic Insurance Care Teams High School Principal Relationship Specialty Start Date End Date None, Provider, MD PCP - General UNKNOWN PHYSICIAN SPECIALTY 06/07/23
--- OUTSIDE RECORDS SUMMARY | 2024-10-16 11:45 | XMS_ITS | Clinical Summary ---
Author Organization [facility] Address [address] [place] [address] Care Team Providers Care Building Surveyor Name Role Phone Unavailable Primary Care Provider Unavailabl e Source Comments [facility],non-owned Affiliates and Associated Physician Practices is amultiple site organization consisting of ambulatory clinics and hospital sitesin [place], [place], [place] and [place]. This disclosure is being madepursuant to the Care Everywhere program and may not contain all information available regarding this patient. Last updated 17.[facility] Allergies Active Allergy Reactions Criticality Noted Date Comments Sulfa Drugs Urticaria Medium 09/10/2024 Encounters Date Type Department Care Team Description 10/15/2024 9:45 AM CDT - 10/15/2024 11:59 PM CDT Hospital Encounter [facility] Maternal & Care [address] [place] [id number] Marques Quezada MD Discharge Disposition: Home or Self Care 09/17/2024 9:45 AM CDT - 09/17/2024 11:59 PM CDT Hospital Encounter [facility] [address] [place] [id number] Raquel Bee MD Discharge Disposition: Home or Self Care 08/19/2024 11:04 AM CDT - 08/19/2024 11:59 PM CDT Hospital Encounter [facility] & Care [address] [place] [phone] Gloria Serrano MD DELINQUENCY COUNSELOR Discharge Disposition: Home or Self Care from Last 3 Months Social History Tobacco Use Types Packs/Day Years Used Date Smoking Tobacco: Never Assessed Estimated Date of Delivery Comme nts Yes 01/07/2025 Based on Ultraso und Sex and Gender Information Value Date Recorded Sex Assigned at Not on file 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 Gender Identity Not on file Sexual Orientation Not on file Plan of Treatment Health Maintenance Due Date Last Done Comments HIV SCREENING 2002 HEPATITIS C SCREENING 03/23/2005 DTAP/TDAP/TD VACCINES (1 - Tdap) 2006 HEPATITIS B VACCINE (1 of 3 - 19+ 3-dose series) 2006 PAP SMEAR 2008 HPV VACCINE (1 - 3-dose SCDM series) 2014 COVID-19 VACCINE (1 - 2023-2 5 season) 2023 DEPRESSION SCREENING 02/28/2024 OB-ONE HOUR GLUCOSE 10/01/2024 OB-TDAP CURRENT 10/08/2024 OB-RHOGAM INJECTION 10/15/2024 INFLUENZA VACCINE (#1) 2024 Respiratory Syncytial Virus (RSV) Vaccine Pt: or over 60 yrs (1 - Risk 1-dose series) 11/12/2024 ZOSTER VACCINE (1 of 2) 2037 HIB VACCINE Aged Out No longer eligi ble based on patient's age to complete this topic MENINGOCOCCAL (Group B) VACC INE SHARED DECISION-MAKING Aged Out No longer eligibl e based on patient's age to complete this topic MENINGOCOCCAL GROUPS A/C/Y/W VACCINE Aged Out No longer eligible b ased on patient's age to complete this topic PNEUMOCOCCAL VACCINE Aged Out No long er eligible based on patient's age to complete this topic Procedures Procedure Name Priority Date/Time Associated Diagnosis Comments SONOGRAM - COMPLETE Routine 10/15/2024 9 :55 AM CDT History of gestational hypertension Multigravida of advanced maternal age in second trimester (HCC) Encounter for ultrasound to assess growth (HCC) 28 weeks gestation of ([facility]) Encounter for follow-up ultrasound of anatomy ([facility]) SONOGRAM - COMPLETE Routine 09/17/2024 1 0:04 AM CDT History of gestational hypertension Multigravida of advanced maternal age in second trimester (HCC) 24 weeks gestation of ([facility]) Encounter for follow-up ultrasound of anatomy (HCC) Encounter for ultrasound to assess growth (HCC) SONOGRAM - COMPLETE Routine 08/19/2024 1 1:01 AM CDT Encounter for anatomic survey (HCC) History of gestational hypertension 19 weeks gestation of (HCC) Multigravida of advanced maternal age in second trimester (HCC) from Last 3 Months Results * Sonogram - Complete (10/15/2024 9:55 AM CDT) Only the most recent of3 resultswithin the time period is included. Linked Results Indication ======== Screening Follow-Up Incomplete [...] 3 lb 0 oz EFW by Hadlock ([id number]) appropriate Growth Overview Exam date GA BPD [...] view. RVOT view. LVOT view. 3-vessel view. 7-jnvlsa-fhrbdcj view. Situs. Aortic arch view. Bicaval view. [...] Z36.2: Encounter for other screening follow-up Procedures 15453: [place] [address]: US Preg Uterus Transvaginal [employer] PACS Anatomical Region Laterality Modality Other 10/15/2024 9:55 AM CDT Yrn Hardy MD [facility] ORDERABLES Edited Result - Final from Last 3 Months Insurance [facility]
[2024-10-16 12:59] LABS: Syphilis IgG/IgM Antibody Non-Reactive (Nonreactive)
[2024-10-16 13:10] LABS: HIV 1/2 Ab P24 Ag Result Negative (Negative)
[2024-10-17 07:09] LABS: Hep Be Antibody Non Reactive (Negative)
== END 2024-10-16 11:11 | disposition home or self-care (01) ==
PROVIDERS: Visit Provider Nurse Practitioner Family
DX: Z11.3 Encounter for screening for infections with a predominantly sexual mode of transmission (principal)
CPT/HCPCS: 36415; 86593; 86703; 86707; 86803; G0432

== ENCOUNTER 2024-12-19 15:23 | Outpatient (CLI) | payer OTHER, SELFPAY ==
[2024-12-19] VITALS (7 sets, daily range): BP systolic 134–152; BP diastolic 80–96; PULSE 87–98; BMI 44.1
--- NOTE | ~2024-12-19 | US_ITS ---
EXAMINATION: US OB BPP wo non-stress, 12/19/2024 17:00 CDT HISTORY: elevated BPs; add SERG Comparison: None Technique: Chambers-scale and color Doppler images were obtained. Findings: Single live intrauterine identified in longitudinal lie with vertex presentation, heart rate 154 SERG 15.8 BPP 8/8 The placenta is located posteriorly and appears grossly unremarkable. Cervix was not clearly visualized IMPRESSION: Single live intrauterine detailed above Reviewed, dictated and finalized at location P.
[2024-12-19 16:24] LABS: Hematocrit 33.3 % (37.0-47.0); Hemoglobin 11.4 g/dL (12.0-15.0); Immature Granulocyte Percent A 0.3 % (0-0.5); Lymphocytes Absolute Auto 1.56 K/mm3 (0.9-3.2); Mean Corpuscular HGB Conc 34.2 g/dl (32-36); Mean Corpuscular Hemoglobin 29.8 pg (26-34); Mean Corpuscular Volume 86.9 fl (80-100); Nucleated Red Blood Cells Absolute Auto 0.000 K/mm3 (0.0-0.012); Nucleated Red Blood Cells Perc 0.0 % (0.0-0.2); Platelet Count Result 227 k/mm3 (150-375); Red Blood Count 3.83 M/mm3 (4.2-5.4); White Blood Count 10.1 K/mm3 (4.5-10.0)
--- OUTSIDE RECORDS SUMMARY | 2024-12-19 16:28 | XMS_ITS | Clinical Summary ---
Author Organization [facility] Address [facility] [place] [address] Care Team Providers Care Beverage Distiller Name Role Phone None, Provider MD Primary [...] Cancer Screening with HPV 2017 COVID-19 Vaccine (2024-2 6 season) 2024 Influenza Adult (#1) 2024 Hepatitis A Vaccines Aged Out No long er eligible based [...] patient's age to complete this topic Insurance [place] Care Teams Beverage Distiller Relationship Specialty Start Date End Date None, Provider, MD PCP - General UNKNOWN PHYSICIAN SPECIALTY 06/07/23
--- OUTSIDE RECORDS SUMMARY | 2024-12-19 16:28 | XMS_ITS | Clinical Summary ---
Author Organization [facility] Address [address] [place] [address] Care Team Providers Care Chucking Lathe Operator Name Role Phone Unavailable Primary Care Provider Unavailabl e Source Comments [facility],non-owned Affiliates and Associated Physician Practices is amultiple site organization consisting of ambulatory clinics and hospital sitesin [place], [place], [place] and [place]. This disclosure is being madepursuant to the Care Everywhere program and may not contain all information available regarding this patient. Last updated 17.[facility] Allergies Active Allergy Reactions Criticality Noted Date Comments Sulfa Drugs Urticaria Medium 09/10/2024 Encounters Date Type Department Care Team Description 11/26/2024 9:45 AM CDT - 11/26/2024 11:59 PM CDT Hospital Encounter [facility] Maternal & Care [address] [place] [id number] Gloria Serrano MD DIVISION OPERATIONS SPECIALIST Discharge Disposition: Home or Self Care 10/15/2024 9:45 AM CDT - 10/15/2024 11:59 PM CDT Hospital Encounter [facility] Maternal & Care [address] [place] [phone] Marques Quezada MD Discharge Disposition: Home or Self Care from Last 3 Months Social History Tobacco Use Types Packs/Day Years Used Date Smoking Tobacco: Never Assessed Estimated Date of Delivery Comme nts Yes 01/07/2025 Based on Ultraso und Sex and Gender Information Value Date Recorded Sex Assigned at Not on file Legal 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 BOSS Gender Identity Not on file Sexual Orientation Not on file Plan of Treatment Health Maintenance Due Date Last Done Comments HIV SCREENING 2002 HEPATITIS C SCREENING 03/23/2005 DTAP/TDAP/TD VACCINES (1 - Tdap) 2006 HEPATITIS B VACCINE (1 of 3 - 19+ 3-dose series) 2006 PAP SMEAR 2008 HPV VACCINE (1 - 3-dose SCDM series) 2014 DEPRESSION SCREENING 02/28/2024 OB-ONE HOUR GLUCOSE 10/01/2024 OB-TDAP CURRENT 10/08/2024 12/05/2015 OB-RHOGAM INJECTION 10/15/2024 COVID-19 VACCINE (1 - 2023-2 5 season) 2024 INFLUENZA VACCINE (#1) 2024 Respiratory Syncytial Virus (RSV) Vaccine Pt: or over 60 yrs (1 - Risk 1-dose series) 11/12/2024 OB-GROUP B STREP SCREEN 12/03/2024 ZOSTER VACCINE (1 of 2) 2037 HIB [...] Associated Diagnosis Comments SONOGRAM - COMPLETE Routine 11/26/2024 9 :58 AM CDT History of gestational hypertension Multigravida of advanced maternal age in second trimester (HCC) Encounter for ultrasound to assess growth (HCC) 34 weeks gestation of (HCC) SONOGRAM - COMPLETE Routine 10/15/2024 9 :55 AM CDT History of gestational hypertension Multigravida of advanced maternal age in second trimester (HCC) Encounter for ultrasound to assess growth (HCC) 28 weeks gestation of (HCC) Encounter for follow-up ultrasound of anatomy (HCC) from Last 3 Months Results * Sonogram - Complete (11/26/2024 9:58 AM CDT) Only the most recent of2 resultswithin the time period is included. Linked Results Indication ======== Screening Follow-Up Uterine size-date discrepancy Large for Dates Advanced maternal age (AMA), multigravida History ====== OB History 2. Para 1 [id number] 1. live 2012. Gest. age 38 w + 0 d. Weight 3,713 g. Sex of child: male. Details: GDM, Gestational Hypertension, Preeclampsia Lab Tests Test Date Result NIPT Low risk, Female per patient Maternal Assessment Physical Exam Height 173 cm, 5 ft 8 in. Initial weight 98 kg, 216 lb. Initial BMI 32.84 kg/m Method ====== Transabdominal ultrasound, Transabdominal ultrasound. View: Limited by late gestational age, maternal body habitus, and position. ========= Guerrero . Number of fetuses: 1 Dating ====== Date Details Gest. age VERNON Stated VERNON 34 w + 0 d 01/07/2025 Previous U/S 05/22/2024 GA, GA 7 w + 1 d 34 w + 0 d 01/07/2025 U/S 11/26/2024 based upon AC, BPD, Femur, HC 34 w + 5 d 01/02/2025 Assigned dating based on ultrasound (GA), selected on 08/19/2024 34 w + 0 d 01/07/2025 General Evaluation Cardiac activity present. FHR 155 bpm. Presentation: cephalic Placenta: Placental site: posterior Amniotic fluid: Amount of AF: normal. MVP 6.0 cm. SERG 14.1 cm. Q1 2.6 cm, Q2 6.0 cm, Q3 2.8 cm, Q4 2.7 cm Biometry BPD 84.2 mm 33w 6d 44% Hadlock HC 318.2 mm 35w 6d 61% Hadlock AC 316.5 mm 35w 4d 90% Hadlock Femur 65.5 mm 33w 5d 34% Hadlock Humerus 58.5 mm 33w 6d 58% Altagracia HC / AC 1.01 Weight Calculation: EFW 2,554 g 71% Hadlock EFW (lb,oz) 5 lb 10 oz EFW by Hadlock ([id number]) appropriate Growth Overview Exam date GA BPD (mm) HC (mm) AC (mm) FL (mm) HL (mm) EFW (g) 08/19/2024 19w 6d 45.8 49% 176.7 57% 160.7 84% 33.5 66% 32.3 86% 375 89% 09/17/2024 24w 0d 53.7 3% 215.2 18% 205.7 77% 44.8 63% 41.4 72% 726 73% 10/15/2024 28w 0d 73.5 83% 270.2 66% 254.8 87% 53.5 46% 1355 82% 11/26/2024 34w 0d 84.2 44% 318.2 61% 316.5 90% 65.5 34% 58.5 58% 2554 71% Anatomy The following structures appear normal: Abdomen Stomach. Kidneys. Bladder. sex: female. Impression ========= Single, live, intrauterine at 34w 0d. The size is appropriate. The amniotic fluid volume is normal. No major malformations were seen within the limits of ultrasound. Comment ======== ultrasound alone cannot detect all structural, genetic, or functional , placental, or maternal abnormalities Follow-up ======== As clinically indicated. Coding ====== Diagnoses O09.523: Supervision of elderly multigravida O44.43: Low lying placenta NOS or without hemorrhage Z36.2: Encounter for other screening follow-up Procedures 29500: US Preg Uterus Follow Up [facility] [employer] PACS Anatomical Region Laterality Modality Other 11/26/2024 9:58 AM CDT us rYn Hardy MD [facility] ORDERABLES Edited Result - Final from Last 3 Months Insurance [facility]
--- OUTSIDE RECORDS SUMMARY | 2024-12-19 16:28 | XMS_ITS | Data Portability ---
Author Organization [facility], [place], operated by [facility], Telehealth (patients home) Address [address] [place] [address] Assessment Encounter Date Assessment Date Assessment LastModified by Organization Details LastModified Time 11/08/2023 11/08/2023 Here for evaluation of MDD. also would like treated for ADHD. History of ADHD- will have records sent from previous provider ASRS-V1.1 positive for ADHD PHQ9-13 mod MONICO 7-3 none [email or web address] Not available 11/08/2023 14:43:11 Plan of Treatment Reminders Order Date Submit Date Provider Last Modified By Organization Details Last Modified Time Details Appointments None recorded. Lab None recorded. Referral None recorded. Procedures None recorded. Surgeries None recorded. Imaging None recorded. Medication Orders Lexapro 5 mg tablet 024 [id number], [address], [place], [id number], 14:43:43 Patient TargetsNo targets recorded. Patient Instructions Encounter Date Encounter Id Patient Instructions Last Modified By Organization Details Last Modified Time 11/08/2023 [id number] depression treatment: care instructions Not available 11/08/2023 14:43:35 Reason for Referral None Reported. Problems Name Problem SNOMED Code Status Onset Date Resolution Date Notes Provider Name and Address Organization Details Recorded Time Moderate recurrent major depression 40943144 Active 2023 Razia Nunez, QI, PMHNP-BC [address], [place], [address], [facility] [place] 12:00:52 Attention deficit hyperactivity disorder, combined type [id number] Active 2023 Razia Nunez, QI, PMP- [address], [place], [address], [facility] [place] 4 14:38:17 Problem Notes None recorded. Procedures Surgical History Date Name Laterality Status Provider Name and Address Organization Details Recorded Time [facility] 11/08/2023 11:06:19 Imaging Results None recorded. Procedure [...] Not available Not available Not available 11/08/2023 [id number] SNOMED Thuy [facility] [address] 4 11:02:12 Medications Name Sig Start Date [...] Body mass index (BMI) Body weight Systolic And Diastolic Provider Name and Address Organization Details Last Updated DateTime 11/08/2023 172.72 cm 39.8 kg/m2 244498.2 g 129/86 mm[Hg] Thuy Tov[facility] 11/08/2023 11:01:21 Social History Question Answer Notes LastModified by Organizat [email or web address] Details LastModified Time Tobacco Smoking Status Current Every Day Smoker Thuy [facility]ov[facility] 11/08/2023 11:05:33 What Is Your Level Of Caffeine Consumption? Occasional [email or web address] Information not available 11/08/2023 Which Illicit Or Recreational Drugs Have You Used? MJ Information not available 11/08/2023 Are There Any Guns Present In Your Home? No [email or web address] Information not available 11/08/2023 Do You Feel Safe In Your Home? Yes [email or web address] Information not available 11/08/2023 Do You Have Any Future Plans To Get ? No, I Don't Want To Become Information not available 11/08/2023 Sex: Unknown Functional Status Question Answer Note LastModified by Organizat [employer] Details LastModified Time Do you use any illicit or recreational drugs? Yes [email or web address] Information not available 11/08/2023 Do you or have you ever used any other forms of tobacco or nicotine? Yes [email or web address] Information not available 11/08/2023 What is your level of alcohol consumption? None [email or web address] Information not available 11/08/2023 Do you or have you ever used e-cigarettes or vape? Current user of electronic cigarettes Information not available 11/08/2023 What is your exercise level? None Information not available 11/08/2023 Mental Status Question Answer Note LastModified by Organization D etails LastModified Time Do you feel stressed (tense, restless, nervous, or anxious, or unable to sleep at night)? [id number] [email or web address] Information not available 11/08/2023 Family History Relationship Description Onset Age of this Age Resolved Age Notes LastModified by Organization Details LastModified Time Maternal Grandmother Congestive heart failure [email or web address] Not available 2023 11:04:20 Medical History Condition Response Depression Y Anxiety Disorder Y ADD/ADHD Y Gynecological History Statement/Question Response Menses Monthly Y Current Control Method None Date of LMP 11/07/2023 Obstetrics History GPAL:G 1 P 1 0 0 0 Type Value Full Term 1 Total 1 Past Encounters Encounter ID Performer Location Encounter Start Date Encounter Closed Date Diagnosis/Indication Diagnosis SNOMED-CT Code Diagnosis ICD10 Code Diagnosis IMO Codes Diagnosis Note [id number] Razia Nunez CNM, PMP- Main Office [address] [place] [address] 11/08/2023 10:53:55 11/13/2023 10:47:16 Moderate recurrent major depression 98983974 F33.1 start Lexapro 5mg dailyretur n to office in 4 weeks Attention deficit hyperactivity disorder, combined type 72183877 F90.2 Health Concerns Section Related Observation LastModified by Organization Detai ls LastModified Time None Recorded Concern Status LastModified by Organization Details LastModified Time None Recorded Advance Directives Directive None Recorded Payers Insurance Date Sequence Insurance Name Policy Number Policy De La Rosa Covered Member ID De La Rosa Member ID Guarantor Name 12/09/2023 1 [facility] ON OR AFTER 08/27/20 (MEDICAID REPLACEMENT - HMO) Anu Lees [id number] Anu Lees Notes Date Note Type Note Provider Name and Address Organization Details Recorded Time 4 text/html ADHD Follow-Up PsychiatricReported by PatientADHDFor associated symptoms, patient reportslow attention to detail,has difficulty sustaining attention in tasks,makes careless mistakes at work,does not listen when spoken to directly,does not follow through on instructions,fails to finish work,has difficulty organizing tasks and activities,reluctant to engage in tasks that require sustained mental effort,loses things necessary for tasks or activities,easily distracted by extraneous stimuli,forgetful,consta ntly leaves seat in situations in which remaining seated is expected,has difficulty engaging in leisure activities quietly,talks excessively,blurts out answers before questions have been completed,has difficulty awaiting turn, andinterrupts others. For alleviating factors, patient reportsstimulant therapy(has taken adderal in the past). For sleep, patient reportsaverage hrs sleep per night 7-10. Met with Anu today. Anu is here [...] Razia Nunez, QI, PMHNP- [address], [place], [address], [place] - [facility] 11/08/2023 14:47:26 OBGyn Episode No OBEpisode recorded.
[2024-12-19 16:34] LABS: Total Protein Urine Random 11 mg/dL; Ur Ttl Prot Creatinine Ratio 0.07 mg/mg (0-0.20)
[2024-12-19 16:36] LABS: Alanine Aminotransferase 18 U/L (6-35); Albumin Level 3.2 g/dL (3.5-5.1); Alkaline Phosphatase 115 U/L (38-126); Anion Gap 7 mmol/L (4-12); Aspartate Amino Transferase 19 U/L (14-36); Bilirubin,Total 0.3 mg/dL (0.2-1.3); Blood Urea Nitrogen 11 mg/dL (7-17); Calcium 8.7 mg/dL (8.4-10.2); Carbon Dioxide 17 mmol/L (22-30); Chloride 108 mmol/L (98-107); Estimated CRCL calculation 162 ml/min; Estimated Glomerular Filt Rate > 60; Glucose 172 mg/dL (65-110); Potassium 3.5 mmol/L (3.4-5.0); Sodium 132 mmol/L (137-145); Total Protein 6.2 g/dL (6.3-8.2); Uric Acid 5.9 mg/dL (2.5-7.5)
[2024-12-19 16:43] LABS: Add Urine Microscopic? YES; Appearance Urine Cloudy (Clear); Glucose Urine UA Negative (Negative); Leukocyte Esterase Ur Negative LEU/UL (Negative); Need Manual Microscopic Reviewed; Nitrate Urine Negative (Negative); Non Pathogenic Casts 0-2; Specific Grav Ur 1.020 (1.001-1.035)
--- NOTE | 2024-12-19 17:51 | PC.NURSE ---
Reported updated lab results, BPP, and SERG, latest BPs to Dr. Napoles. DC orders given.
== END 2024-12-19 17:54 | disposition home or self-care (01) ==
LOC: ANHOBOP 15:29 → ANHLDR 15:31
PROVIDERS: Visit Provider Obstetrics & Gynecology
DX: O13.9 Gestational [pregnancy-induced] hypertension without significant proteinuria, unspecified trimester (principal); Z3A.00 Weeks of gestation of pregnancy not specified
CPT/HCPCS: 36415; 59025; 76819; 80053; 81001; 82570; 84156; 84550; 85025; 99199

== ENCOUNTER 2024-12-21 12:05 | Inpatient (IN) | payer OTHER, SELFPAY ==
[2024-12-21] VITALS (76 sets, daily range): BP systolic 109–175; BP diastolic 49–124; PULSE 81–150; TEMP 36.8–37; O2SAT 98–100; BMI 42.8
--- OUTSIDE RECORDS SUMMARY | 2024-12-21 12:34 | XMS_ITS | Clinical Summary ---
Author Organization [facility] Address [address] [place] [address] Care Team Providers Care Bleach Chlorinator Name Role Phone Unavailable Primary Care Provider Unavailabl e Source Comments [facility],non-owned Affiliates and Associated Physician Practices is amultiple site organization consisting of ambulatory clinics and hospital sitesin [place], [place], [place] and [place]. This disclosure is being madepursuant to the Care Everywhere program and may not contain all information available regarding this patient. Last updated 17.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 Discharge Disposition: Home or Self Care 10/15/2024 9:45 AM CDT - 10/15/2024 11:59 PM CDT Hospital Encounter [facility] [address] [place] [id number] Marques Quezada MD Discharge Disposition: Home or Self Care from Last 3 Months Social History Tobacco Use Types Packs/Day Years Used Date Smoking Tobacco: Never Assessed Estimated Date of Delivery Comme nts Yes 01/07/2025 Based on Ultraso und Sex and Gender Information Value Date Recorded Sex Assigned at Not on file 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 Para 1 [id number] 1. live 2012. Gest. age 40 w [...] 5 lb 10 oz EFW by Hadlock ([id number]) appropriate Growth Overview Exam date [place] BPD [...] Z36.2: Encounter for other screening follow-up Procedures 71286: US Preg Uterus Follow Up [employer] PACS Anatomical Region Laterality Modality Other 11/26/2024 9:58 AM CDT us Yrn Hardy MD [facility] ORDERABLES Edited Result - Final from Last 3 Months Insurance [facility]
[2024-12-21 12:52] LABS: OBXCEM ROM Plus Positive (Negative)
[2024-12-21 13:19] LABS: Hematocrit 37.6 % (37.0-47.0); Hemoglobin 12.8 g/dL (12.0-15.0); Immature Granulocyte Percent A 0.7 % (0-0.5); Lymphocytes Absolute Auto 1.61 K/mm3 (0.9-3.2); Mean Corpuscular HGB Conc 34.0 g/dl (32-36); Mean Corpuscular Hemoglobin 29.4 pg (26-34); Mean Corpuscular Volume 86.2 fl (80-100); Nucleated Red Blood Cells Absolute Auto 0.000 K/mm3 (0.0-0.012); Nucleated Red Blood Cells Perc 0.0 % (0.0-0.2); Platelet Count Result 258 k/mm3 (150-375); Red Blood Count 4.36 M/mm3 (4.2-5.4); White Blood Count 10.5 K/mm3 (4.5-10.0)
[2024-12-21 13:32] LABS: Alanine Aminotransferase 18 U/L (6-35); Albumin Level 3.6 g/dL (3.5-5.1); Alkaline Phosphatase 146 U/L (38-126); Anion Gap 9 mmol/L (4-12); Aspartate Amino Transferase 20 U/L (14-36); Bilirubin,Total 0.3 mg/dL (0.2-1.3); Blood Urea Nitrogen 10 mg/dL (7-17); Calcium 9.3 mg/dL (8.4-10.2); Carbon Dioxide 17 mmol/L (22-30); Chloride 108 mmol/L (98-107); Estimated Glomerular Filt Rate > 60; Glucose 90 mg/dL (65-110); Potassium 4.2 mmol/L (3.4-5.0); Sodium 134 mmol/L (137-145); Total Protein 6.9 g/dL (6.3-8.2); Uric Acid 5.4 mg/dL (2.5-7.5)
[2024-12-21] MEDS: LACTATED RINGERS 1,000 ML 125 ML IV CONT ×2 (13:49→20:15)
--- NOTE | 2024-12-21 13:55 | LDADM ---
This patient, Anu Lees, was admitted to Labor/Delivery/Recovery 107 on 12/21/24 at 12:05. Plans for labor, pain management and were discussed with patient. Patient/family oriented to hospital policies and general routines including ID bracelet, bed and alarms, visiting hours, pain management, procedures, bathroom and other care routines, personal items, smoking policy, room service/diet and guest tray routines, infant security routines, and visiting hours. Patient/Family are encouraged to report perceived risks to care and to ask questions if they do not understand what they are told or what they should do. See OBIX for further documentation.
[2024-12-21 14:07] LABS: Syphilis IgG/IgM Antibody Non-Reactive (Nonreactive)
[2024-12-21] MEDS: fentaNYL CITRATE INJ (*CRX) 100 MCG/2 ML VIAL 50 MCG IV PUSH (17:29)
--- NOTE | 2024-12-21 18:45 | WPDANESEPP ---
Anes - Eval Pre Procedure Procedure: Labor epidural Date/Time: 12/21/24 18:45 Surgeon: Marly Preop Diagnosis: Abdominal pain with contractions Pre Op Diagnosis: Leaking Fluid Patient Data Age: 39 Gender: F Height: 1.73 m Weight: 127.9 kg Last Vital Signs Temp 98.2 F 12/21/24 17:30 Pulse 86 12/21/24 18:31 BP 149/98 H 12/21/24 18:31 O2 Del Method Room Air 12/21/24 13:54 Allergies Allergy/AdvReac Type Severity Reaction Status Date / Time Sulfa (Sulfonamide AdvReac Mild Hives Verified 12/21/24 13:55 Antibiotics) Home Medications ?Medication ?Instructions ?Recorded ?Confirmed ?Type docosahexaenoic acid 200 mg 200 mg PO DAILY 07/10/24 12/21/24 History capsule ( DHA) valacyclovir 500 mg tablet 500 mg PO DAILY #30 tabs 12/10/24 12/21/24 Rx (Valtrex) metronidazole 0.75 % (37.5 mg/5 1 appful vaginal ONCE 5 days #70 12/19/24 12/21/24 Rx gram) vaginal gel grams Laboratory Tests 12/21/24 12/21/24 12/21/24 12:25 13:09 13:15 WBC 10.5 H K/mm3 (4.5-10.0) RBC 4.36 M/mm3 (4.2-5.4) Hgb 12.8 g/dL (12.0-15.0) Hct 37.6 % (37.0-47.0) MCV 86.2 fl (80-100) MCH 29.4 pg (26-34) MCHC 34.0 g/dl (32-36) RDW 13.2 % (11.5-14.5) Plt Count 258 k/mm3 (150-375) MPV 9.4 fl (7.4-10.4) Immature Gran % (Auto) 0.7 H % (0-0.5) Neut % (Auto) 76.9 H % (45.5-73.1) Lymph % (Auto) 15.4 L % (18.3-44.2) Oliver % (Auto) 6.1 % (2.6-8.5) Eos % (Auto) 0.7 % (0-4.4) Baso % (Auto) 0.2 % (0.2-1.2) Lymph # (Auto) 1.61 K/mm3 (0.9-3.2) Oliver # (Auto) 0.6 K/mm3 (0.1-0.6) Eos # (Auto) 0.1 K/mm3 (0-0.3) Baso # (Auto) 0.0 K/mm3 (0.0-0.1) Abs Immat Gran (auto) 0.07 H K/mm3 (0.00-0.031) Absolute Neuts (auto) 8.1 H K/mm3 (1.3-6.7) Absolute Nucleated RBC 0.000 K/mm3 (0.0-0.012) Nucleated RBC % 0.0 % (0.0-0.2) Sodium 134 L mmol/L (137-145) Potassium 4.2 mmol/L (3.4-5.0) Chloride 108 H mmol/L (98-107) Carbon Dioxide 17 L mmol/L (22-30) Anion Gap 9 mmol/L (4-12) BUN 10 mg/dL (7-17) Creatinine 0.50 L mg/dL (0.7-1.0) Estim Creat Clear Calc Not Reportable Estimated GFR > 60 (59 - ) Glucose 90 mg/dL (65-110) Uric Acid 5.4 mg/dL (2.5-7.5) Calcium 9.3 mg/dL (8.4-10.2) Total Bilirubin 0.3 mg/dL (0.2-1.3) AST 20 U/L (14-36) ALT 18 U/L (6-35) Alkaline Phosphatase 146 H U/L (38-126) Total Protein 6.9 g/dL (6.3-8.2) Albumin 3.6 g/dL (3.5-5.1) Membranes Rupture Rom plus positive (Negative) Syphilis IgG/IgM Ab Non-reactive (Nonreactive) Blood Type A Positive Antibody Screen Negative : gestational age HCG: positive Patient hx anesthesia problems: none Family hx anesthesia problems: none Results Review: All pre-operative results and documents have been reviewed as part of the pre-operative evaluation. [facility] Past Medical History Medical History and not yet delivered Anxiety and depression Family history of hemochromatosis HSV-2 (herpes simplex virus 2) infection Vaginal delivery Gestational HTN ADHD Anxiety ADD (attention deficit disorder) Surgical History Surgical History Hx of tonsillectomy Family History Family History Grandparent Heart disease Social History Social History Smoking status: Current every day smoker Tobacco type: e-cigarettes/vaping Second hand tobacco smoke exposure: Yes Smoking end date: 05/12/22 Alcohol intake: former Substance use: former Substance use type: marijuana Do You Feel Safe in your Home?: Yes Lack of Transportation: No Lack of Food: Never True Current Housing: I Have Housing Concerned About Future Housing: No Difficulty Paying Gas/Electric Bills: No Difficulty Paying for Meds: No Currently Unemployed: No Education: High School Diploma/GED Difficulty w/ Childcare or Family Care: No Living arrangements: with family Additional living arrangements comments: Grandparents Occupation/Education: occupation Additional occupation/education comments: [employer] Gender identity (if verbalized by the patient): Female Sexual Orientation (if Verbalized by the Patient): Bisexual Spiritual care concerns: No Agree to blood products: Yes Exam Day of Procedure 12/21/24 18:45 Patient weight: morbidly obese Airway: Mallampati scale class II
[2024-12-21] MEDS: AMPICILLIN SODIUM 2 GM in SODIUM CHLORIDE 0.9% IV 100 ML 200 ML IVPB (20:15)
--- NOTE | 2024-12-21 21:08 | P.HPUP_ITS ---
History and Physical Update Update Date/Time: 12/21/24 21:08 39 yo at 37w4d who presents with SROM. History and Physical has been reviewed, including an updated exam of the patient. There are NO changes in the patient's condition. Risks, benefits, and alternatives have been discussed and questions answered. Patient agrees to proceed with procedure. A/P: AMA- counseled on risk and aneuploid testing, rec 162mg baby aspirin daily. h/o GDM med controlled w oral meds,- discussed increase risk, discussed early diabetes testing. h/o PIH- discussed increased risk and recommendation for baby aspirin H/o HSV suppression at 36 or can take for symptoms prior to that or daily suppression if she opts h/o anxiety/ add tobacco abuse- couseled on risk to prenatally and , recommended cessation, discussed cessation methods. Marijuana use- counseled to stop and discussed unknown group home risk to infant. Previous DCFS case, does not have custody of other child. No current open cases. LLP- Has follow up ultrasound scheduled at 28 weeks- resolved 11/01/24 u/s -admit to L&D -routine admission orders -Rh+ -GBS neg -continuous EFM -may have epidrual PRN
[2024-12-21] MEDS: ONDANSETRON INJ 4 MG/2 ML VIAL IV PUSH (21:55)
[2024-12-21] MEDS: OXYTOCIN 30 UNITS/NS 500 ML 30 UNITS/500 ML BAG 999 UNITS IV CONT (22:06)
--- NOTE | 2024-12-21 22:12 | PM.OBPRVD ---
OB - Vaginal Delivery Note Procedure Delivery date: 12/21/24 Induction method: None Delivery augmentation: Pitocin Delivery monitor: External FHT and External Uterine Route of delivery: Episiotomy description: None Laceration Description: None Specimen: No Quantitative Blood Loss (ml): 150 Anesthesia type: Epidural Disposition: Floor Narrative: Patient pushed for a spontaneous vaginal delivery. The fetus was delivered atraumatically and placed on the maternal abdomen. The cord was clamped and cut after 1 minute of life. The cord was double clamped and cut and a segment of cord was collected for cord gases. Cord blood was collected for blood type and Coomb's testing. The placenta delivered spontaneously and was noted to be intact. The perineum was inspected and noted to be intact. The fundus was noted to be firm and good hemostasis was noted. The mom and infant were stable in the delivery room. Baby Date of : 12/21/24 Time of : 22:02 Gestational Age by Date: 37 Infant gender: Female presentation: vertex position: Right Occiput Anterior Placenta delivery description: Spontaneous Cord Vessel Description: 3 Vessels score one minute: 8 score five minutes: 9
[2024-12-21] MEDS: OXYTOCIN 30 UNITS/NS 500 ML 30 UNITS/500 ML BAG 125 UNITS IV CONT (22:38)
[2024-12-22] VITALS (9 sets, daily range): BP systolic 137–158; BP diastolic 78–105; PULSE 82–101; RESP 14–16; TEMP 36.7–37; O2SAT 98–99
[2024-12-22] MEDS: IBUPROFEN 600 MG TABLET PO ×3 (03:37→19:27)
[2024-12-22] MEDS: ACETAMINOPHEN 325 MG TABLET 650 MG PO ×3 (03:38→19:27)
--- NOTE | 2024-12-22 04:16 | OBPPTRN ---
12/22/2024 at 0025. Patient transferred to post room #291. Patient oriented to unit, room, information board, rooming in, admission packet and security measures. Patient verbalizes understanding.
[2024-12-22 05:31] LABS: Hematocrit 32.5 % (37.0-47.0); Hemoglobin 10.8 g/dL (12.0-15.0)
--- NOTE | 2024-12-22 08:22 | P.PNOB_ITS ---
OB - PN: Subj Subjective Date/time seen: 12/22/24 08:22 Patient comments: no complaints, pain well controlled and tolerating diet feeding status: exclusively breast feeding Narrative: patient doing well this AM. No complaints. Pain is well controlled. She reports minimal bleeding. She is ambulating and voiding without difficulty. She is tolerating PO. She denies N/V, fever, chills. OB - PN: Obj Data Labs 12/22/24 05:21 12/21/24 13:15 Labs: Laboratory Results - last 24 hr 12/21/24 12/21/24 12/21/24 12:25 12:42 13:09 WBC 10.5 H RBC 4.36 Hgb 12.8 Hct 37.6 MCV 86.2 MCH 29.4 MCHC 34.0 RDW 13.2 Plt Count 258 MPV 9.4 Immature Gran % (Auto) 0.7 H Neut % (Auto) 76.9 H Lymph % (Auto) 15.4 L Letcher % (Auto) 6.1 Eos % (Auto) 0.7 Baso % (Auto) 0.2 Lymph # (Auto) 1.61 Letcher # (Auto) 0.6 Eos # (Auto) 0.1 Baso # (Auto) 0.0 Abs Immat Gran (auto) 0.07 H Absolute Neuts (auto) 8.1 H Absolute Nucleated RBC 0.000 Nucleated RBC % 0.0 Sodium Potassium Chloride Carbon Dioxide Anion Gap BUN Creatinine Estim Creat Clear Calc Estimated GFR Glucose Uric Acid Calcium Total Bilirubin AST ALT Alkaline Phosphatase Total Protein Albumin Membranes Rupture Rom plus positive Syphilis IgG/IgM Ab Non-reactive Rubella IgG Antibody 16.3 Blood Type A Positive Antibody Screen Negative 12/21/24 12/22/24 13:15 05:21 WBC RBC Hgb 10.8 L Hct 32.5 L MCV MCH MCHC RDW Plt Count MPV Immature Gran % (Auto) Neut % (Auto) Lymph % (Auto) Letcher % (Auto) Eos % (Auto) Baso % (Auto) Lymph # (Auto) Letcher # (Auto) Eos # (Auto) Baso # (Auto) Abs Immat Gran (auto) Absolute Neuts (auto) Absolute Nucleated RBC Nucleated RBC % Sodium 134 L Potassium 4.2 Chloride 108 H Carbon Dioxide 17 L Anion Gap 9 BUN 10 Creatinine 0.50 L Estim Creat Clear Calc Not Reportable Estimated GFR > 60 Glucose 90 Uric Acid 5.4 Calcium 9.3 Total Bilirubin 0.3 AST 20 ALT 18 Alkaline Phosphatase 146 H Total Protein 6.9 Albumin 3.6 Membranes Rupture Syphilis IgG/IgM Ab Rubella IgG Antibody Blood Type Antibody Screen OB - PN A/P Plan day: 1 Plan: routine care Comments: patient doing well H/H stable continue routine care Time Spent With Patient Time: Total time spent is greater than 50% in coordination of care (as documented) at patient's floor/unit and/or counseling patient: Time with patient: less than 15 minutes Review of Systems 2 Review of Systems: All systems reviewed & are unremarkable except as noted in HPI and below Exam 2 Const: General: comfortable and no acute distress Resp: Effort & Inspection: normal respiratory effort Cardio: Rate: regular rate GI: GI Palp: Yes Soft to palpation and No Tenderness to palpation present (GI) Auscultation: normal bowel sounds Other: fundus firm and below umbilicus. Psych: Affect: normal affect
--- NOTE | 2024-12-22 14:21 | PC.NURSE ---
1400- Pt's family visiting, older son is here as well. Pt smiling, laughing with family, states that she is really happy that they are here to visit and happy they brought her [employer]. Pt asking when next blood glucose will be on baby, this RN explained that next check will be in 20-30 minutes. Pt thanked this RN for helping with infant early so that she could sleep. Will continue to monitor.
--- NOTE | 2024-12-22 14:24 | PC.NURSE ---
1230- Pt requesting medication of cramping. This RN provided motrin and Tylenol. This RN also sat with pt to assess how pt was coping with care, pt states that she is happy to have the baby with her, concerned that she might get taken away from her since she lost custody of other child. states that she only smokes MJ. Pt denies any depression at this time states that she is really tired and needed sleep this am. This RN offered support and reassurance and continued teaching of infant care, Will continue to monitor.
[2024-12-22] MEDS: DOCUSATE SODIUM 100 MG CAPSULE PO (19:28)
[2024-12-23 01:00] VITALS: BP 136/83; PULSE 86; RESP 16; TEMP 36.4
[2024-12-23] MEDS: ACETAMINOPHEN 325 MG TABLET 650 MG PO ×3 (01:24→15:08)
[2024-12-23] MEDS: IBUPROFEN 600 MG TABLET PO ×3 (01:24→15:06)
[2024-12-23 05:30] VITALS: BP 122/71; PULSE 78; RESP 16; TEMP 36.3; O2SAT 96
--- NOTE | 2024-12-23 07:35 | PC.NURSE ---
Enc mom to feed baby at 0730 Explained needing to increase feedings up to 30 ml Discussed burping every 10-15 ml and undressing and changing diaper to help with stimulating baby Mom v/u
[2024-12-23 07:40] VITALS: BP 145/76; PULSE 81; RESP 16; TEMP 36.2; O2SAT 97
[2024-12-23] MEDS: MULTIVIT/MIN/PREN/FOL AC/IRON TABLET 1 TAB PO (09:17)
[2024-12-23] MEDS: DOCUSATE SODIUM 100 MG CAPSULE PO ×2 (09:17→15:07)
--- NOTE | 2024-12-23 09:28 | P.PNOB_ITS ---
OB - PN: Subj Subjective Date/time seen: 12/23/24 09:28 Narrative: Pain OK. Would like to go home. Has a history of depression in the past - feels fine today, but is interested in starting a medication. OB - PN: Obj Data Labs 12/22/24 05:21 12/21/24 13:15 OB - PN A/P Plan day: 2 Comments: A: PPD#2, doing well. P: Start Lexapro 10 mg po daily. Check bp again in 1-2 days. Otherwies, home to f/u 6 weeks. Exam 2 Psych: Other: AVSS ABD soft, nontender, fundus firm EXT nontender
[2024-12-23] MEDS: ESCITALOPRAM OXALATE 10 MG TABLET PO (09:51)
[2024-12-23 11:44] VITALS: BP 144/90; PULSE 78; RESP 18; TEMP 36.4; O2SAT 97
--- NOTE | 2024-12-23 12:22 | PC.NURSE ---
Addendum entered by An Falk RN 12/23/24 12:26: Documented at wrong time Reassessment of feed done at 0755 Original Note: Mom states baby only would eat 12 ml Assisted with burping baby Mom states baby had hiccups so she stopped feeding Mom states she will continue and will call if she needs assistance
--- NOTE | 2024-12-23 13:01 | PC.NURSE ---
Dr. Napoles notified of BP, no new orders received at this time. Pt maybe discharged today to a NCB and will follow up tomorrow with nurse for BP check.
--- NOTE | 2024-12-23 15:30 | PC.NURSE ---
Pt transferred to [facility] Room #291 Procedure reviewed with pt including providing own personal care items Pt v/u of all
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
[2024-12-24 13:47] VITALS: BP 164/94; PULSE 78; RESP 18; TEMP 36.6; O2SAT 100
--- NOTE | 2024-12-25 11:25 | PM.OBDSVD ---
DS: Admitting Diagnosis Discharge Date 12/23/24 Admitting Diagnosis spontaneous rupture of membranes intrauterine at term DS: Discharge Diagnosis Discharge Diagnosis (1) Vaginal delivery: Code(s): O80 - Encounter for full-term uncomplicated delivery Status: Acute OB - DS: Summary OB Procedures : None OB Procedures Intrapartum: Spontaneous Vag Delivery OB Procedures: : None Peripartum Data Laceration Description: None Episiotomy description: None Status at Discharge Functional status at discharge: independent ambulation Overall status at discharge: patient is back to baseline Time Spent with Patient Time attestation: Total time spent providing and/or coordinating discharge services: Time spent: Less than 30 minutes Exam Const: General: comfortable and no acute distress Resp: Effort & Inspection: normal respiratory effort Auscultation: clear to auscultation bilaterally Cardio: Rate: regular rate GI: GI Palp: Yes Soft to palpation Auscultation: normal bowel sounds Other: Fundus firm below umbilicus Psych: Appearance: grossly normal Mental Status: mental status grossly normal Affect: normal affect Discharge Plan Discharge Attending physician on discharge: Yrn Luke Consulting providers: Jeremiah Murrieta Jr. Discharging Clinician: Yaakov Napoles Patient Disposition: Home Activity: pelvic rest Diet: regular Discharge Instructions: Call or return if temperature above 100.4? F, increased abdominal pain, increased vaginal bleeding or any new problems. Education: Mom and Baby Guide Given to: Mother Follow-Up: Call your delivering provider's office for an appointment to be seen in: Phone your OB office to schedule a follow up appointment Mom has follow up Appointment Date/Time: December 24, 2024 at 9:00 am Nurse Fisher will come to your room #291 for this appointment What to expect at your follow-up visit: Blood Pressure Check Physical Assessment Call [phone] if you are unable to keep your appointment time. BREAST CARE: * Wear a snug supportive bra. * For engorgement discomfort: Bottle Feeding: * May apply ice packs EPISIOTOMY/PERINEAL CARE: * Until bleeding stops, use your lizabeth bottle after urinating * Change your pad frequently throughout the day * You may take sitz baths several times a day (fill your bathtub with warm water and soak for 20 minutes.) Do NOT bathe in the water * No tub baths until seen by your physician - You may shower ACTIVITY: * Rest as much as possible. * Do not exercise or lift anything heavier than your baby (such as laundry or other children.) * Avoid stairs or driving as much as possible. * Do not put anything into the vagina. No douching, tampons, or sexual activity until seen by physician. NOTIFY PHYSICIAN IF YOU HAVE ANY QUESTIONS OR IF ANY OF THE FOLLOWING SYMPTOMS OCCUR: * If your episiotomy or incision becomes red, swollen, or more painful than what you have experienced in the hospital. * If your vaginal bleeding becomes foul smelling. * If your vaginal bleeding becomes more heavy than a period or if your bleeding changes from pink to bright red. However, you may pass an occasional walnut-sized clot once or twice for the first week . * If you experience a sharp, shooting pain in you calves. * If you discover a hard, reddened area on your breast or if you experience flu-like symptoms. DIET: * Eat regular, well-balanced meals. * Drink plenty of fluids daily. If , drink to thirst. Patient Language: Greenlandic Stand Alone Forms: General Discharge Information Follow-up/Referrals: Yrn Luke MD [Physician, [facility]] - Call for Appointment Discharge Medications: New escitalopram oxalate [Lexapro] 10 mg tablet 10 mg PO DAILY Qty: 30 1RF Continued DHA 200 mg capsule 200 mg PO DAILY valacyclovir [Valtrex] 500 mg tablet 500 mg PO DAILY Qty: 30 1RF No Action nifedipine [Procardia XL] 30 mg tablet extended release 24hr 30 mg PO DAILY Qty: 30 0RF Date of admission: 12/21/24 12:05 Primary Care Provider: UNKNOWN,DOCTOR Admitting Provider: Catrachito Menard Attending physician on admission: Yaakov Napoles Condition: Stable
== END 2024-12-23 15:29 | disposition home or self-care (01) | DRG 560 ==
LOC: ANHOB2 12-23 09:31 → ANHLDR 12-25 06:50 → ANHOB2 12-25 06:50
PROVIDERS: Admitting Provider Student in an Organized Health Care Education/Training Program; Visit Provider Obstetrics & Gynecology
DX: O99.334 Smoking (tobacco) complicating childbirth (principal); Z37.0 Single live birth; Z3A.37 37 weeks gestation of pregnancy; O98.32 Other infections with a predominantly sexual mode of transmission complicating childbirth; A60.9 Anogenital herpesviral infection, unspecified; O99.324 Drug use complicating childbirth; F12.90 Cannabis use, unspecified, uncomplicated; O99.343 Other mental disorders complicating pregnancy, third trimester; F32.A Depression, unspecified; Z60.8 Other problems related to social environment; O42.02 Full-term premature rupture of membranes, onset of labor within 24 hours of rupture; Z87.59 Personal history of other complications of pregnancy, childbirth and the puerperium
CPT/HCPCS: 36415; 80053; 84112; 84550; 85014; 85018; 85025; 86593; 86762; 86850; 86900; 86901; A9270; J0290; J2405; J2590; J2795; J3010; J7120

== ENCOUNTER 2024-12-24 17:28 | Inpatient (IN) | payer OTHER, SELFPAY ==
[2024-12-24] VITALS (100 sets, daily range): BP systolic 123–169; BP diastolic 76–110; PULSE 73–102; RESP 16–18; TEMP 36.6–37.5; O2SAT 92–100
--- NOTE | ~2024-12-24 | US_ITS ---
ULTRASOUND ABDOMEN LIMITED (RIGHT UPPER QUADRANT) Clinical History: ruq pain mild increase lft, pre-eclam Comparison: None Technique: Right upper quadrant sonography Findings: Liver: Normal size. Normal echotexture. No intrahepatic biliary ductal dilatation. Normal hepatopedal flow main portal vein. Common Duct: 6 mm. Gallbladder: No stones. No wall thickening. No pericholecystic fluid. Pancreas: Unremarkable. IMPRESSION: 1. No acute findings. Reviewed, dictated and finalized at location R. IMPRESSION: 1. No acute findings.
--- NOTE | 2024-12-24 14:13 | PC.NURSE ---
Nati Frankel RN informed me of this patient up on the mom/baby unit as a no care bed who she did a follow- up visit for and she had severe BP's. Also, the [facility] drum attendant is in the patient room at present. To be notified when she has left the room.
--- NOTE | 2024-12-24 15:30 | PC.NURSE ---
Pt brought to room 116 per wheelchair for severe hypertension in period.
--- NOTE | 2024-12-24 16:00 | PC.NURSE ---
Called into room to start IV after prior RN was unsuccessful.
--- NOTE | 2024-12-24 16:30 | PC.NURSE ---
Unsuccesful at IV attempt with U/S. Call placed to Mary Zhang RN- vascular access. Pt has been crying and upset about DCFS involvement with her baby. Pt now on right side while waiting for vascular jointer submarine cable. BP checked 152/82.
--- OUTSIDE RECORDS SUMMARY | 2024-12-24 16:44 | XMS_ITS | Data Portability ---
Author Organization [facility], Telehealth (patients home) Address [address] [place] [address] Assessment Encounter Date Assessment Date Assessment LastModified by Organization Details LastModified Time 11/08/2023 11/08/2023 Here for evaluation of MDD. also would like treated for ADHD. History of ADHD- will have records sent from previous provider ASRS-V1.1 positive for ADHD PHQ9-13 mod MONICO 7-3 none [email or web address] Not available 11/08/2023 14:43:11 Plan of Treatment Reminders Order Date Submit Date Provider Last Modified By Organization Details Last Modified Time Details Appointments None recorded. Lab None recorded. Referral None recorded. Procedures None recorded. Surgeries None recorded. Imaging None recorded. Medication Orders Lexapro 5 mg tablet 024 [id number], [address], [place], [id number], 14:43:43 Patient TargetsNo targets recorded. Patient Instructions Encounter Date Encounter Id Patient Instructions Last Modified By Organization Details Last Modified Time 11/08/2023 [id number] depression treatment: care instructions [email or web address] Not available 11/08/2023 14:43:35 Reason for Referral None Reported. Problems Name Problem SNOMED Code Status Onset Date Resolution Date Notes Provider Name and Address Organization Details Recorded Time Moderate recurrent major depression 83475650 Active 2023 Razia Nunez, QI, PMHNP-BC [address], [place], [address], [facility] [place] 12:00:52 Attention deficit hyperactivity disorder, combined type 96511082 Active 2023 Razia Nunez, QI, PMP- [address], [place], [address], [facility] [place] 4 14:38:17 Problem Notes None recorded. Procedures Surgical History Date Name Laterality Status Provider Name and Address Organization Details Recorded Time [facility]/08[facility] 11:06:19 Imaging Results None recorded. Procedure [...] Not available Not available Not available 11/08/2023 [id number] SNOMED Thuy [facility] 4 11:02:12 Medications Name Sig Start Date [...] Updated DateTime 11/08/2023 172.72 cm 39.8 kg/m2 793591.2 g 129/86 mm[Hg] Thuy [facility] 11/08/2023 11:01:21 Social History Question Answer Notes LastModified by Organizat Halldis Details LastModified Time Tobacco Smoking Status Current Every Day Smoker Thuy [facility] 11/08/2023 11:05:33 What Is Your Level Of Caffeine Consumption? Occasional [email or web address] Information not available 11/08/2023 Which Illicit Or Recreational Drugs Have You Used? MJ Information not available 11/08/2023 Are There Any Guns Present In Your Home? No Information not available 11/08/2023 Do You Feel Safe In Your Home? Yes [email or web address] Information not available 11/08/2023 Do You Have Any Future Plans To Get ? No, I Don't Want To Become [email or web address] Information not available 11/08/2023 Sex: Unknown Functional Status Question Answer Note LastModified by Organizat Halldis Details LastModified Time Do you use any illicit or recreational drugs? Yes [email or web address] Information not available 11/08/2023 Do you or have you ever used any other forms of tobacco or nicotine? Yes [email or web address] Information not available 11/08/2023 What is your level of alcohol consumption? None [email or web address] Information not available 11/08/2023 Do you or have you ever used e-cigarettes or vape? Current user of electronic cigarettes [email or web address] Information not available 11/08/2023 What is your exercise level? None [email or web address] Information not available 11/08/2023 Mental Status Question Answer Note LastModified by Organization D etails LastModified Time Do you feel stressed (tense, restless, nervous, or anxious, or unable to sleep at night)? [id number] [email or web address] Information not available 11/08/2023 Family History Relationship Description Onset Age of this Age Resolved Age Notes LastModified by Organization Details LastModified Time Maternal Grandmother Congestive heart failure [email or web address] Not available 2023 11:04:20 Medical History Condition Response Anxiety Disorder Y ADD/ADHD Y Depression Y Gynecological History Statement/Question Response Menses Monthly [...] CNM, PMP- Main Office [address] [place] [address] 11/08/2023 10:53:55 11/13/2023 10:47:16 Moderate recurrent major depression 84608687 F33.1 start Lexapro 5mg dailyretur n to office in 4 weeks Attention deficit hyperactivity disorder, combined type 89712478 F90.2 Health Concerns Section Related Observation LastModified by Organization Detai ls LastModified Time None Recorded Concern Status LastModified by Organization Details LastModified Time None Recorded Advance Directives Directive None Recorded Payers Insurance Date Sequence Insurance Name Policy Number Policy De La Rosa Covered Member ID De La Rosa Member ID Guarantor Name 12/09/2023 1 [facility] ON OR AFTER 08/27/20 (MEDICAID REPLACEMENT - HMO) Anu Lees [id number] Anu Lees Notes Date Note Type Note [...] Razia Nunez, QI, PMHNP- [address], [place], [address], [place] [facility] 11/08/2023 14:47:26 OBGyn Episode No OBEpisode recorded.
--- OUTSIDE RECORDS SUMMARY | 2024-12-24 16:44 | XMS_ITS | Clinical Summary ---
Author Organization [facility] Address [address] [place] [address] Care Team Providers Care Dock Clerk Name Role Phone Unavailable Primary Care Provider Unavailabl e Source Comments [facility],non-owned Affiliates and Associated Physician Practices is amultiple site organization consisting of ambulatory clinics and hospital sitesin [place], [place], [place] and [place]. This disclosure is being madepursuant to the Care Everywhere program and may not contain all information available regarding this patient. Last updated 17.[facility] Allergies Active Allergy Reactions Criticality Noted Date Comments Sulfa Drugs Urticaria Medium 09/10/2024 Encounters Date Type Department Care Team Description 11/26/2024 9:45 AM CDT - 11/26/2024 11:59 PM CDT Hospital Encounter [facility], [facility] Maternal & Care [address] [place] [id number] Gloria Serrano MD ST[employer] TURNER Discharge Disposition: Home or Self Care 10/15/2024 9:45 AM CDT - 10/15/2024 11:59 PM CDT Hospital Encounter [facility] Maternal & Care [address] [place] [id number] Marques Quezada MD Discharge Disposition: Home or Self Care from Last 3 Months Social History Tobacco Use Types Packs/Day Years Used Date Smoking Tobacco: Never Assessed Estimated Date of Delivery Comme nts Yes 01/07/2025 Based on Ultraso und Sex and Gender Information Value Date Recorded Sex Assigned at Not on file Legal Sex Female 3:29 PM TRANSPORT RN Gender Identity Not on file Sexual Orientation [...] History ====== OB History 2. Para 1 [id number] 1. live 2012. Gest. age 40 w [...] 5 lb 10 oz EFW by Hadlock ([id number]) appropriate Growth Overview Exam date [place] BPD [...] Z36.2: Encounter for other screening follow-up Procedures 75533: [place] Preg Uterus Follow Up Referly PACS Anatomical Region Laterality Modality Other 11/26/2024 9:58 AM CDT us Yrn Hardy MD [facility] ORDERABLES Edited Result - Final from Last 3 Months Insurance [facility]
--- OUTSIDE RECORDS SUMMARY | 2024-12-24 16:44 | XMS_ITS | Clinical Summary ---
Author Organization [facility] Address [facility] [place] [address] Care Team Providers Care Warehouse Specialist Name Role Phone None, Provider MD Primary [...] patient's age to complete this topic Insurance [employer] Care Teams Warehouse Specialist Relationship Specialty Start Date End Date None, Provider, MD PCP - General UNKNOWN PHYSICIAN SPECIALTY 06/07/23
--- NOTE | 2024-12-24 16:46 | PC.NURSE ---
Dr. Luke informed of delay in getting IV started and labs just sent. Informed of severe BP's. Pt denies headache, visual disturbance, epigastric/RUQ pain. Pt has been upset and crying since DCFS saw her right after Natalia HUNTER's follow-up assessment. Order received for Procardia XL. To call communications project lead physician if any more severe BP's in the next hour.
[2024-12-24 16:51] LABS: Hematocrit 36.3 % (37.0-47.0); Hemoglobin 12.7 g/dL (12.0-15.0); Immature Granulocyte Percent A 0.4 % (0-0.5); Lymphocytes Absolute Auto 1.13 K/mm3 (0.9-3.2); Mean Corpuscular HGB Conc 35.0 g/dl (32-36); Mean Corpuscular Hemoglobin 29.9 pg (26-34); Mean Corpuscular Volume 85.4 fl (80-100); Nucleated Red Blood Cells Absolute Auto 0.000 K/mm3 (0.0-0.012); Nucleated Red Blood Cells Perc 0.0 % (0.0-0.2); Platelet Count Result 269 k/mm3 (150-375); Red Blood Count 4.25 M/mm3 (4.2-5.4); White Blood Count 11.5 K/mm3 (4.5-10.0)
[2024-12-24 17:03] LABS: Alanine Aminotransferase 28 U/L (6-35); Albumin Level 3.9 g/dL (3.5-5.1); Alkaline Phosphatase 122 U/L (38-126); Anion Gap 11 mmol/L (4-12); Aspartate Amino Transferase 39 U/L (14-36); Bilirubin,Total 0.3 mg/dL (0.2-1.3); Blood Urea Nitrogen 9 mg/dL (7-17); Calcium 9.2 mg/dL (8.4-10.2); Carbon Dioxide 19 mmol/L (22-30); Chloride 106 mmol/L (98-107); Estimated Glomerular Filt Rate > 60; Glucose 136 mg/dL (65-110); Potassium 3.7 mmol/L (3.4-5.0); Sodium 136 mmol/L (137-145); Total Protein 7.2 g/dL (6.3-8.2); Uric Acid 5.4 mg/dL (2.5-7.5)
--- NOTE | 2024-12-24 17:24 | PC.NURSE ---
Reported Pt condition to Dr. Kennedy. Will follow hypertensive protocol and start magnesium sulfate.
[2024-12-24] MEDS: ACETAMINOPHEN 500 MG TABLET 1000 MG PO (17:43)
[2024-12-24] MEDS: IBUPROFEN 600 MG TABLET PO (17:43)
[2024-12-24] MEDS: MAGNESIUM SULF 4 GM/WATER100ML 4 GM/100 ML BAG IVPB (18:08)
[2024-12-24] MEDS: LACTATED RINGERS 1,000 ML 75 ML IV CONT (18:16)
[2024-12-24] MEDS: MAGNESIUM SULF 20GM/WATER500ML 500 ML 50 MG IV CONT (19:03)
--- NOTE | 2024-12-24 19:09 | PC.NURSE ---
Called Dr. Kennedy, update on pt and blood pressures. Orders received to administer second labetalol dose in protocol if two severe blood pressures back to back taking every fifteen minutes.
--- NOTE | 2024-12-24 21:10 | PC.NURSE ---
Called Dr. Kennedy, update on blood pressures and three doses of labetalol. Orders received for hydralazine 10 mg if two severe blood pressures back to back every fifteen minutes, lasix 10 mg, nifedipine 30 mg every 12 hours, ambien at bedtime, CBC and CMP at 0500, and blood pressures every fifteen minutes until stable for two hours then every four hours.
[2024-12-24] MEDS: FUROSEMIDE INJ 40 MG/4 ML VIAL 10 MG IV PUSH (21:41)
[2024-12-24] MEDS: ZOLPIDEM TARTRATE (*CRX) 5 MG TABLET PO (22:10)
[2024-12-25] VITALS (138 sets, daily range): BP systolic 119–163; BP diastolic 70–105; PULSE 86–135; RESP 16–20; TEMP 36.6–37.1; O2SAT 90–100; BMI 43.0
[2024-12-25] MEDS: MAGNESIUM SULF 20GM/WATER500ML 500 ML 50 MG IV CONT ×2 (05:04→14:56)
--- NOTE | 2024-12-25 05:11 | PC.NURSE ---
Called Dr. Kennedy, update on pt, headache 3 out of 10, nausea, urine output, and blood pressure. Orders received to administer zofran 4 mg every six hours as needed.
[2024-12-25] MEDS: ACETAMINOPHEN 500 MG TABLET 1000 MG PO ×2 (05:24→12:07)
[2024-12-25 05:44] LABS: Hematocrit 40.8 % (37.0-47.0); Hemoglobin 13.9 g/dL (12.0-15.0); Immature Granulocyte Percent A 0.3 % (0-0.5); Lymphocytes Absolute Auto 1.86 K/mm3 (0.9-3.2); Mean Corpuscular HGB Conc 34.1 g/dl (32-36); Mean Corpuscular Hemoglobin 29.1 pg (26-34); Mean Corpuscular Volume 85.4 fl (80-100); Nucleated Red Blood Cells Absolute Auto 0.000 K/mm3 (0.0-0.012); Nucleated Red Blood Cells Perc 0.0 % (0.0-0.2); Platelet Count Result 297 k/mm3 (150-375); Red Blood Count 4.78 M/mm3 (4.2-5.4); White Blood Count 8.8 K/mm3 (4.5-10.0)
[2024-12-25 06:07] LABS: Alanine Aminotransferase 33 U/L (6-35); Albumin Level 4.1 g/dL (3.5-5.1); Alkaline Phosphatase 129 U/L (38-126); Anion Gap 12 mmol/L (4-12); Aspartate Amino Transferase 45 U/L (14-36); Bilirubin,Total 0.6 mg/dL (0.2-1.3); Blood Urea Nitrogen 8 mg/dL (7-17); Calcium 8.4 mg/dL (8.4-10.2); Carbon Dioxide 21 mmol/L (22-30); Chloride 101 mmol/L (98-107); Estimated CRCL calculation 164 ml/min; Estimated Glomerular Filt Rate > 60; Glucose 156 mg/dL (65-110); Potassium 3.5 mmol/L (3.4-5.0); Sodium 134 mmol/L (137-145); Total Protein 7.6 g/dL (6.3-8.2)
--- NOTE | 2024-12-25 06:31 | PC.NURSE ---
Report given to Yael Charles RN.
--- NOTE | 2024-12-25 07:30 | PM.IMHP ---
H&P: HPI History of Present Illness Date/Time: 12/25/24 07:30 Chief Complaint: elevated blood pressure Narrative: Anu is a 39yo P2002 s/p on 12/21/24 who has been in a no care bed. She presented to the f/u office for routine checkup and was found to have severe range BPs. She was given nifedipine 30mg PO but her severe range BPs persisted. She was started on magensium sulfate and given labetalol IV 20, 40, 80, and lasix IV 10mg and her oral nifedipine was increased to 30mg BID. She did not have any further severe range BPs. She had a mild headache. No other symptoms of PIH. Review of Systems Constitutional: Constitutional: Denies chills, Denies fever(s) and Reports headache(s) Eyes: Eyes: Denies change in vision ENT: Denies headache(s) Cardiovascular: Cardiovascular: Denies chest pain and Denies dyspnea Respiratory: Respiratory: Denies dyspnea Genitourinary: Genitourinary: Denies abnormal vaginal bleeding and Denies vaginal discharge Neurologic: Denies headache(s) Psychiatric: Psychiatric: Denies anxiety and Denies depression [facility] Past Medical History Medical History and not yet delivered Anxiety and depression Family history of hemochromatosis HSV-2 (herpes simplex virus 2) infection Vaginal delivery Gestational HTN ADHD Anxiety ADD (attention deficit disorder) Surgical History Surgical History Hx of tonsillectomy Family History Family History Grandparent Heart disease Social History Social History Smoking status: Current every day smoker Tobacco type: e-cigarettes/vaping Second hand tobacco smoke exposure: Yes Smoking end date: 05/12/22 Alcohol intake: former Substance use: former Substance use type: marijuana Do You Feel Safe in your Home?: Yes Lack of Transportation: No Lack of Food: Never True Current Housing: I Have Housing Concerned About Future Housing: No Difficulty Paying Gas/Electric Bills: No Difficulty Paying for Meds: No Currently Unemployed: No Education: High School Diploma/GED Difficulty w/ Childcare or Family Care: No Living arrangements: with family Additional living arrangements comments: Grandparents Occupation/Education: occupation Additional occupation/education comments: [employer] Gender identity (if verbalized by the patient): Female Sexual Orientation (if Verbalized by the Patient): Bisexual Spiritual care concerns: No Agree to blood products: Yes Meds Home Medications and Allergies Home Medications ?Medication ?Instructions ?Recorded ?Confirmed ?Type docosahexaenoic acid 200 mg 200 mg PO DAILY 07/10/24 12/25/24 History capsule ( DHA) valacyclovir 500 mg tablet 500 mg PO DAILY #30 tabs 12/10/24 12/25/24 Rx (Valtrex) escitalopram oxalate 10 mg tablet 10 mg PO DAILY #30 tabs 12/23/24 12/25/24 Rx (Lexapro) nifedipine 30 mg tablet,extended 30 mg PO DAILY #30 tabs 12/24/24 12/25/24 Rx release 24 hr (Procardia XL) Allergies Allergy/AdvReac Type Severity Reaction Status Date / Time Sulfa (Sulfonamide AdvReac Mild Hives Verified 12/24/24 22:35 Antibiotics) Vital Signs Vital Signs - 24 hr 12/24/24 15:10 12/24/24 16:32 12/24/24 16:43 Temperature Pulse Rate 102 H 100 Respiratory Rate Blood Pressure 162/110 H 152/82 H 165/97 H Blood Pressure [Left Arm] Pulse Oximetry 12/24/24 17:00 12/24/24 17:13 12/24/24 17:15 Temperature Pulse Rate 82 102 H 86 Respiratory Rate Blood Pressure 162/94 H 162/85 H Blood Pressure [Left Arm] 152/82 H Pulse Oximetry 12/24/24 17:22 12/24/24 17:30 12/24/24 17:44 Temperature 99.5 F Pulse Rate 89 89 Respiratory Rate 18 Blood Pressure 163/97 H Blood Pressure [Left Arm] Pulse Oximetry 12/24/24 18:06 12/24/24 18:15 12/24/24 18:17 Temperature 99.2 F Pulse Rate 80 79 79 Respiratory Rate 16 Blood Pressure 167/98 H 160/98 H 160/98 H Blood Pressure [Left Arm] Pulse Oximetry 99 12/24/24 18:19 12/24/24 18:24 12/24/24 18:29 Temperature Pulse Rate Respiratory Rate Blood Pressure Blood Pressure [Left Arm] Pulse Oximetry 99 98 96 12/24/24 18:30 12/24/24 18:34 12/24/24 18:39 Temperature Pulse Rate 82 Respiratory Rate Blood Pressure 154/86 H Blood Pressure [Left Arm] Pulse Oximetry 96 97 12/24/24 18:42 12/24/24 18:45 12/24/24 18:47 Temperature Pulse Rate 85 Respiratory Rate Blood Pressure 154/88 H Blood Pressure [Left Arm] Pulse Oximetry 98 98 12/24/24 18:52 12/24/24 18:57 12/24/24 18:58 Temperature 98.9 F Pulse Rate Respiratory Rate Blood Pressure Blood Pressure [Left Arm] Pulse Oximetry 97 96 12/24/24 19:00 12/24/24 19:02 12/24/24 19:03 Temperature Pulse Rate 79 79 Respiratory Rate Blood Pressure 160/83 H Blood Pressure [Left Arm] Pulse Oximetry 97 12/24/24 19:03 12/24/24 19:07 12/24/24 19:12 Temperature 98.9 F Pulse Rate 78 Respiratory Rate 18 Blood Pressure 160/83 H Blood Pressure [Left Arm] Pulse Oximetry 97 96 96 12/24/24 19:15 12/24/24 19:17 12/24/24 19:22 Temperature Pulse Rate 80 Respiratory Rate Blood Pressure 156/96 H Blood Pressure [Left Arm] Pulse Oximetry 94 97 12/24/24 19:27 12/24/24 19:30 12/24/24 19:32 Temperature Pulse Rate 81 Respiratory Rate Blood Pressure 159/99 H Blood Pressure [Left Arm] Pulse Oximetry 96 98 12/24/24 19:37 12/24/24 19:42 12/24/24 19:45 Temperature Pulse Rate 81 Respiratory Rate Blood Pressure Blood Pressure [Left Arm] Pulse Oximetry 98 96 12/24/24 19:47 12/24/24 19:51 12/24/24 19:52 Temperature Pulse Rate 79 Respiratory Rate Blood Pressure 157/92 H Blood Pressure [Left Arm] Pulse Oximetry 96 99 12/24/24 19:57 12/24/24 20:00 12/24/24 20:02 Temperature Pulse Rate 78 Respiratory Rate Blood Pressure 162/86 H Blood Pressure [Left Arm] Pulse Oximetry 99 100 10/28/25 20:07 12/24/24 20:08 12/24/24 20:09 Temperature Pulse Rate Respiratory Rate Blood Pressure Blood Pressure [Left Arm] Pulse Oximetry 100 97 99 12/24/24 20:14 12/24/24 20:15 12/24/24 20:23 Temperature Pulse Rate 85 Respiratory Rate Blood Pressure 161/102 H Blood Pressure [Left Arm] Pulse Oximetry 98 99 12/24/24 20:25 12/24/24 20:28 12/24/24 20:33 Temperature Pulse Rate 93 Respiratory Rate Blood Pressure Blood Pressure [Left Arm] Pulse Oximetry 99 99 12/24/24 20:38 12/24/24 20:39 12/24/24 20:43 Temperature Pulse Rate 78 Respiratory Rate Blood Pressure 169/97 H Blood Pressure [Left Arm] Pulse Oximetry 96 98 12/24/24 20:48 12/24/24 20:49 12/24/24 20:53 Temperature Pulse Rate 81 Respiratory Rate Blood Pressure Blood Pressure [Left Arm] Pulse Oximetry 97 99 12/24/24 20:58 12/24/24 21:03 12/24/24 21:26 Temperature Pulse Rate 79 Respiratory Rate Blood Pressure 151/98 H Blood Pressure [Left Arm] Pulse Oximetry 99 97 97 12/24/24 21:31 12/24/24 21:36 12/24/24 21:39 Temperature Pulse Rate 79 Respiratory Rate Blood Pressure 154/102 H Blood Pressure [Left Arm] Pulse Oximetry 100 100 12/24/24 21:41 12/24/24 21:46 12/24/24 21:53 Temperature Pulse Rate Respiratory Rate Blood Pressure Blood Pressure [Left Arm] Pulse Oximetry 99 99 99 12/24/24 21:58 12/24/24 22:00 12/24/24 22:03 Temperature Pulse Rate 79 Respiratory Rate Blood Pressure Blood Pressure [Left Arm] Pulse Oximetry 99 100 12/24/24 22:05 12/24/24 22:11 12/24/24 22:16 Temperature Pulse Rate 73 Respiratory Rate Blood Pressure 168/84 H Blood Pressure [Left Arm] Pulse Oximetry 99 100 12/24/24 22:21 12/24/24 22:26 12/24/24 22:31 Temperature Pulse Rate 79 Respiratory Rate Blood Pressure 146/85 H Blood Pressure [Left Arm] Pulse Oximetry 97 96 98 12/24/24 22:36 12/24/24 22:38 12/24/24 22:41 Temperature Pulse Rate 78 Respiratory Rate Blood Pressure 138/83 Blood Pressure [Left Arm] Pulse Oximetry 96 95 12/24/24 22:45 12/24/24 22:46 12/24/24 22:51 Temperature Pulse Rate 83 Respiratory Rate Blood Pressure 145/89 H Blood Pressure [Left Arm] Pulse Oximetry 95 95 12/24/24 22:56 12/24/24 23:00 12/24/24 23:01 Temperature Pulse Rate 83 Respiratory Rate Blood Pressure 135/84 Blood Pressure [Left Arm] Pulse Oximetry 95 94 12/24/24 23:06 12/24/24 23:06 12/24/24 23:11 Temperature 98 F 98.0 F Pulse Rate 80 Respiratory Rate 18 Blood Pressure 135/84 Blood Pressure [Left Arm] Pulse Oximetry 95 95 93 12/24/24 23:15 12/24/24 23:16 12/24/24 23:21 Temperature Pulse Rate 85 Respiratory Rate Blood Pressure 127/81 Blood Pressure [Left Arm] Pulse Oximetry 93 92 12/24/24 23:26 12/24/24 23:30 12/24/24 23:31 Temperature Pulse Rate 88 Respiratory Rate Blood Pressure 123/76 Blood Pressure [Left Arm] Pulse Oximetry 92 93 12/24/24 23:36 12/24/24 23:41 12/24/24 23:45 Temperature Pulse Rate 89 Respiratory Rate Blood Pressure 123/77 Blood Pressure [Left Arm] Pulse Oximetry 93 92 12/24/24 23:46 12/24/24 23:51 12/24/24 23:56 Temperature Pulse Rate Respiratory Rate Blood Pressure Blood Pressure [Left Arm] Pulse Oximetry 93 93 93 12/25/24 00:00 12/25/24 00:01 12/25/24 00:06 Temperature Pulse Rate 89 Respiratory Rate Blood Pressure 119/75 Blood Pressure [Left Arm] Pulse Oximetry 93 93 12/25/24 00:11 12/25/24 00:15 12/25/24 00:17 Temperature Pulse Rate 90 Respiratory Rate Blood Pressure 136/85 Blood Pressure [Left Arm] Pulse Oximetry 93 94 12/25/24 00:22 12/25/24 00:27 12/25/24 00:32 Temperature Pulse Rate Respiratory Rate Blood Pressure Blood Pressure [Left Arm] Pulse Oximetry 93 94 93 12/25/24 00:37 12/25/24 00:42 12/25/24 00:47 Temperature Pulse Rate Respiratory Rate Blood Pressure Blood Pressure [Left Arm] Pulse Oximetry 94 95 94 12/25/24 00:54 12/25/24 00:59 12/25/24 01:04 Temperature Pulse Rate Respiratory Rate Blood Pressure Blood Pressure [Left Arm] Pulse Oximetry 98 96 95 12/25/24 01:09 12/25/24 01:14 12/25/24 01:19 Temperature Pulse Rate Respiratory Rate Blood Pressure Blood Pressure [Left Arm] Pulse Oximetry 95 95 95 12/25/24 01:24 12/25/24 01:29 12/25/24 01:34 Temperature Pulse Rate Respiratory Rate Blood Pressure Blood Pressure [Left Arm] Pulse Oximetry 95 95 95 12/25/24 01:39 12/25/24 01:44 12/25/24 01:49 Temperature Pulse Rate Respiratory Rate Blood Pressure Blood Pressure [Left Arm] Pulse Oximetry 95 95 95 12/25/24 01:54 12/25/24 01:59 12/25/24 02:04 Temperature Pulse Rate Respiratory Rate Blood Pressure Blood Pressure [Left Arm] Pulse Oximetry 95 94 95 12/25/24 02:09 12/25/24 02:14 12/25/24 02:19 Temperature Pulse Rate Respiratory Rate Blood Pressure Blood Pressure [Left Arm] Pulse Oximetry 95 95 95 12/25/24 02:24 12/25/24 02:29 12/25/24 02:34 Temperature Pulse Rate Respiratory Rate Blood Pressure Blood Pressure [Left Arm] Pulse Oximetry 95 95 95 12/25/24 02:39 12/25/24 02:44 12/25/24 02:49 Temperature Pulse Rate Respiratory Rate Blood Pressure Blood Pressure [Left Arm] Pulse Oximetry 95 95 95 12/25/24 02:54 12/25/24 02:59 12/25/24 03:04 Temperature Pulse Rate Respiratory Rate Blood Pressure Blood Pressure [Left Arm] Pulse Oximetry 95 95 95 12/25/24 03:06 12/25/24 03:07 12/25/24 03:07 Temperature 98.6 F 98.6 F Pulse Rate 91 93 Respiratory Rate 18 Blood Pressure 126/70 126/70 Blood Pressure [Left Arm] Pulse Oximetry 95 12/25/24 03:09 12/25/24 03:14 12/25/24 03:19 Temperature Pulse Rate Respiratory Rate Blood Pressure Blood Pressure [Left Arm] Pulse Oximetry 95 95 95 12/25/24 03:24 12/25/24 03:29 12/25/24 03:34 Temperature Pulse Rate Respiratory Rate Blood Pressure Blood Pressure [Left Arm] Pulse Oximetry 95 95 96 12/25/24 03:39 12/25/24 03:44 12/25/24 03:49 Temperature Pulse Rate Respiratory Rate Blood Pressure Blood Pressure [Left Arm] Pulse Oximetry 96 96 96 12/25/24 03:54 12/25/24 03:59 12/25/24 04:04 Temperature Pulse Rate Respiratory Rate Blood Pressure Blood Pressure [Left Arm] Pulse Oximetry 96 96 96 12/25/24 04:09 12/25/24 04:14 12/25/24 04:19 Temperature Pulse Rate Respiratory Rate Blood Pressure Blood Pressure [Left Arm] Pulse Oximetry 96 95 95 12/25/24 04:24 12/25/24 04:29 12/25/24 04:34 Temperature Pulse Rate Respiratory Rate Blood Pressure Blood Pressure [Left Arm] Pulse Oximetry 93 93 93 12/25/24 04:39 12/25/24 04:44 12/25/24 04:49 Temperature Pulse Rate Respiratory Rate Blood Pressure Blood Pressure [Left Arm] Pulse Oximetry 93 93 93 12/25/24 04:54 12/25/24 04:57 12/25/24 05:08 Temperature Pulse Rate Respiratory Rate Blood Pressure Blood Pressure [Left Arm] Pulse Oximetry 93 97 99 12/25/24 05:09 12/25/24 05:09 12/25/24 05:13 Temperature 97.9 F 97.9 F Pulse Rate 130 H 135 H Respiratory Rate 18 Blood Pressure 159/96 H 159/96 H Blood Pressure [Left Arm] Pulse Oximetry 99 100 12/25/24 05:18 12/25/24 05:23 12/25/24 06:29 Temperature Pulse Rate Respiratory Rate Blood Pressure Blood Pressure [Left Arm] Pulse Oximetry 100 100 100 12/25/24 06:30 12/25/24 06:35 12/25/24 06:40 Temperature Pulse Rate 94 Respiratory Rate Blood Pressure 121/72 Blood Pressure [Left Arm] Pulse Oximetry 98 100 97 12/25/24 06:45 12/25/24 06:50 12/25/24 06:55 Temperature Pulse Rate Respiratory Rate Blood Pressure Blood Pressure [Left Arm] Pulse Oximetry 97 97 96 12/25/24 07:00 12/25/24 07:05 12/25/24 07:10 Temperature Pulse Rate Respiratory Rate Blood Pressure Blood Pressure [Left Arm] Pulse Oximetry 97 96 96 12/25/24 07:15 12/25/24 07:20 12/25/24 07:25 Temperature Pulse Rate Respiratory Rate Blood Pressure Blood Pressure [Left Arm] Pulse Oximetry 96 96 96 Exam Const: General: cooperative, no acute distress and obese Nutritional Appearance: obese Orientation/consciousness: patient oriented x3 Resp: Effort & Inspection: normal respiratory effort Cardio: Rate: regular rate Skin: General skin exam: normal color Neuro: General: patient oriented x3 Extrem: General: normal to inspection Psych: Appearance: grossly normal Affect: normal affect Attitude: cooperative H&P: Results Labs Labs: Short CBC 12/24/24 12/25/24 Range/Units 15:52 04:51 WBC 11.5 H 8.8 (4.5-10.0) K/mm3 Hgb 12.7 13.9 (12.0-15.0) g/dL Hct 36.3 L 40.8 (37.0-47.0) % Plt Count 269 297 (150-375) k/mm3 BMP 12/24/24 12/25/24 16:01 04:51 Sodium 136 L 134 L Potassium 3.7 3.5 Chloride 106 101 Carbon Dioxide 19 L 21 L BUN 9 8 Creatinine 0.52 L 0.56 L Glucose 136 H 156 H Calcium 9.2 8.4 Liver Function 12/24/24 12/25/24 Range/Units 16:01 04:51 Total Bilirubin 0.3 0.6 (0.2-1.3) mg/dL AST 39 H 45 H (14-36) U/L ALT 28 33 (6-35) U/L Alkaline Phosphatase 122 129 H (38-126) U/L Albumin 3.9 4.1 (3.5-5.1) g/dL Assessment and Plan Assessment and plan (1) Pre-eclampsia, : Code(s): O14.95 - Unspecified pre-eclampsia, complicating the puerperium Status: Acute Plan - S/p labetalol IV 20, 40, 80mg + lasix IV 10mg - continue magnesium sulfate IV for 24 hours - BPs normal range overnight; 2 moderate this AM - pt asymptomatic - Continue nifedipine 30mg BID - I&O's; output 1L overnight - Regular diet - Tylenol/ibuprofen PRN pain - Labs stable; mildly elevated AST noted - Anticipate stay today/tonight to continue to monitor BPs even off magnesium
[2024-12-25] MEDS: LACTATED RINGERS 1,000 ML 75 ML IV CONT (07:45)
[2024-12-25] MEDS: IBUPROFEN 600 MG TABLET PO (10:02)
--- NOTE | 2024-12-25 10:13 | PCCCNOTE ---
CC received a phone call on yesterday from DCFS to follow up with mother and baby today. CC was informed that DCFS will visit baby and mother at bedside today. DCFS stated they would arrive between [id number] to complete an assessment and establish a plan for 12/24/24. It is reported that DCFS will complete a home assessment in the morning of 12/25/24 to determine if it is safe for baby to discharge. CC will give an update once DCFS contact with the determination of the home study. CC informed nurses and nurses are aware of the plan. Baby will remain in the hospital until assessment is complete and approved from DCFS. CC will follow.
--- NOTE | 2024-12-25 11:40 | OBPPTRN ---
Patient transferred to post room #291 via wheelchair. Support person present. Oriented to unit, room, information board, rooming in, admission packet and security measures. Patient verbalizes understanding.
--- NOTE | 2024-12-25 14:23 | P.PNOB_ITS ---
OB - PN: Subj Subjective Date/time seen: 12/25/24 14:23 Interval history: She states headache is better, denies scotomata or RUQ pain. Denies chest pain or SO B. OB - PN: Obj Data Labs 12/25/24 04:51 12/26/24 05:06 Labs: Laboratory Results - last 24 hr 12/24/24 12/24/24 12/25/24 15:52 16:01 04:51 WBC 11.5 H 8.8 RBC 4.25 4.78 Hgb 12.7 13.9 Hct 36.3 L 40.8 MCV 85.4 85.4 MCH 29.9 29.1 MCHC 35.0 34.1 RDW 13.2 13.3 Plt Count 269 297 MPV 8.6 8.4 Immature Gran % (Auto) 0.4 0.3 Neut % (Auto) 84.1 H 67.5 Lymph % (Auto) 9.8 L 21.2 Greene % (Auto) 4.3 7.0 Eos % (Auto) 1.1 3.7 Baso % (Auto) 0.3 0.3 Lymph # (Auto) 1.13 1.86 Greene # (Auto) 0.5 0.6 Eos # (Auto) 0.1 0.3 Baso # (Auto) 0.0 0.0 Abs Immat Gran (auto) 0.05 H 0.03 Absolute Neuts (auto) 9.7 H 5.9 Absolute Nucleated RBC 0.000 0.000 Nucleated RBC % 0.0 0.0 Sodium 136 L 134 L Potassium 3.7 3.5 Chloride 106 101 Carbon Dioxide 19 L 21 L Anion Gap 11 12 BUN 9 8 Creatinine 0.52 L 0.56 L Estim Creat Clear Calc Not Reportable 164 Estimated GFR > 60 > 60 Glucose 136 H 156 H Uric Acid 5.4 Calcium 9.2 8.4 Total Bilirubin 0.3 0.6 AST 39 H 45 H ALT 28 33 Alkaline Phosphatase 122 129 H Total Protein 7.2 7.6 Albumin 3.9 4.1 OB - PN A/P Assessment and Plan (1) Pre-eclampsia, : Code(s): O14.95 - Unspecified pre-eclampsia, complicating the puerperium Status: Acute Assessment and Plan: Will continue Magnesium for 24 hour. Continue procardia. Time Spent With Patient Time: Total time spent is greater than 50% in coordination of care (as documented) at patient's floor/unit and/or counseling patient: Exam 2 Const: General: comfortable HENMT: Head: normal to inspection Resp: Effort & Inspection: normal respiratory effort GI: Other: no ruq pain
--- NOTE | 2024-12-25 14:23 | PM.IMHP ---
H&P: HPI History of Present Illness Date/Time: 12/25/24 14:23 [facility] Past Medical History Medical History (Updated 12/25/24 @ 11:27 by Catrachito Menard MD) and not yet delivered Anxiety and depression Family history of hemochromatosis HSV-2 (herpes simplex virus 2) infection Vaginal delivery Gestational HTN ADHD Anxiety ADD (attention deficit disorder) Surgical History Surgical History Hx of tonsillectomy Family History Family History Grandparent Heart disease Social History Social History Smoking status: Current every day smoker Tobacco type: e-cigarettes/vaping Second hand tobacco smoke exposure: Yes Smoking end date: 05/12/22 Alcohol intake: former Substance use: former Substance use type: marijuana Do You Feel Safe in your Home?: Yes Lack of Transportation: No Lack of Food: Never True Current Housing: I Have Housing Concerned About Future Housing: No Difficulty Paying Gas/Electric Bills: No Difficulty Paying for Meds: No Currently Unemployed: No Education: High School Diploma/GED Difficulty w/ Childcare or Family Care: No Living arrangements: with family Additional living arrangements comments: Grandparents Occupation/Education: occupation Additional occupation/education comments: [employer] Gender identity (if verbalized by the patient): Female Sexual Orientation (if Verbalized by the Patient): Bisexual Spiritual care concerns: No Agree to blood products: Yes Meds Home Medications and Allergies Home Medications ?Medication ?Instructions ?Recorded ?Confirmed ?Type docosahexaenoic acid 200 mg 200 mg PO DAILY 07/10/24 12/25/24 History capsule ( DHA) valacyclovir 500 mg tablet 500 mg PO DAILY #30 tabs 12/10/24 12/25/24 Rx (Valtrex) escitalopram oxalate 10 mg tablet 10 mg PO DAILY #30 tabs 12/23/24 12/25/24 Rx (Lexapro) nifedipine 30 mg tablet,extended 30 mg PO DAILY #30 tabs 12/24/24 12/25/24 Rx release 24 hr (Procardia XL) Allergies Allergy/AdvReac Type Severity Reaction Status Date / Time Sulfa (Sulfonamide AdvReac Mild Hives Verified 12/24/24 22:35 Antibiotics) Vital Signs Vital Signs - 24 hr 12/24/24 15:10 12/24/24 16:32 12/24/24 16:43 Temperature Pulse Rate 102 H 100 Respiratory Rate Blood Pressure 162/110 H 152/82 H 165/97 H Blood Pressure [Left Arm] Pulse Oximetry 12/24/24 17:00 12/24/24 17:13 12/24/24 17:15 Temperature Pulse Rate 82 102 H 86 Respiratory Rate Blood Pressure 162/94 H 162/85 H Blood Pressure [Left Arm] 152/82 H Pulse Oximetry 12/24/24 17:22 12/24/24 17:30 12/24/24 17:44 Temperature 99.5 F Pulse Rate 89 89 Respiratory Rate 18 Blood Pressure 163/97 H Blood Pressure [Left Arm] Pulse Oximetry 12/24/24 18:06 12/24/24 18:15 12/24/24 18:17 Temperature 99.2 F Pulse Rate 80 79 79 Respiratory Rate 16 Blood Pressure 167/98 H 160/98 H 160/98 H Blood Pressure [Left Arm] Pulse Oximetry 99 12/24/24 18:19 12/24/24 18:24 12/24/24 18:29 Temperature Pulse Rate Respiratory Rate Blood Pressure Blood Pressure [Left Arm] Pulse Oximetry 99 98 96 12/24/24 18:30 12/24/24 18:34 12/24/24 18:39 Temperature Pulse Rate 82 Respiratory Rate Blood Pressure 154/86 H Blood Pressure [Left Arm] Pulse Oximetry 96 97 12/24/24 18:42 12/24/24 18:45 12/24/24 18:47 Temperature Pulse Rate 85 Respiratory Rate Blood Pressure 154/88 H Blood Pressure [Left Arm] Pulse Oximetry 98 98 12/24/24 18:52 12/24/24 18:57 12/24/24 18:58 Temperature 98.9 F Pulse Rate Respiratory Rate Blood Pressure Blood Pressure [Left Arm] Pulse Oximetry 97 96 12/24/24 19:00 12/24/24 19:02 12/24/24 19:03 Temperature Pulse Rate 79 79 Respiratory Rate Blood Pressure 160/83 H Blood Pressure [Left Arm] Pulse Oximetry 97 12/24/24 19:03 12/24/24 19:07 12/24/24 19:12 Temperature 98.9 F Pulse Rate 78 Respiratory Rate 18 Blood Pressure 160/83 H Blood Pressure [Left Arm] Pulse Oximetry 97 96 96 12/24/24 19:15 12/24/24 19:17 12/24/24 19:22 Temperature Pulse Rate 80 Respiratory Rate Blood Pressure 156/96 H Blood Pressure [Left Arm] Pulse Oximetry 94 97 12/24/24 19:27 12/24/24 19:30 12/24/24 19:32 Temperature Pulse Rate 81 Respiratory Rate Blood Pressure 159/99 H Blood Pressure [Left Arm] Pulse Oximetry 96 98 12/24/24 19:37 12/24/24 19:42 12/24/24 19:45 Temperature Pulse Rate 81 Respiratory Rate Blood Pressure Blood Pressure [Left Arm] Pulse Oximetry 98 96 12/24/24 19:47 12/24/24 19:51 12/24/24 19:52 Temperature Pulse Rate 79 Respiratory Rate Blood Pressure 157/92 H Blood Pressure [Left Arm] Pulse Oximetry 96 99 12/24/24 19:57 12/24/24 20:00 12/24/24 20:02 Temperature Pulse Rate 78 Respiratory Rate Blood Pressure 162/86 H Blood Pressure [Left Arm] Pulse Oximetry 99 100 12/24/24 20:07 12/24/24 20:08 12/24/24 20:09 Temperature Pulse Rate Respiratory Rate Blood Pressure Blood Pressure [Left Arm] Pulse Oximetry 100 97 99 12/24/24 20:14 12/24/24 20:15 12/24/24 20:23 Temperature Pulse Rate 85 Respiratory Rate Blood Pressure 161/102 H Blood Pressure [Left Arm] Pulse Oximetry 98 99 12/24/24 20:25 12/24/24 20:28 12/24/24 20:33 Temperature Pulse Rate 93 Respiratory Rate Blood Pressure Blood Pressure [Left Arm] Pulse Oximetry 99 99 12/24/24 20:38 12/24/24 20:39 12/24/24 20:43 Temperature Pulse Rate 78 Respiratory Rate Blood Pressure 169/97 H Blood Pressure [Left Arm] Pulse Oximetry 96 98 12/24/24 20:48 12/24/24 20:49 12/24/24 20:53 Temperature Pulse Rate 81 Respiratory Rate Blood Pressure Blood Pressure [Left Arm] Pulse Oximetry 97 99 12/24/24 20:58 12/24/24 21:03 12/24/24 21:26 Temperature Pulse Rate 79 Respiratory Rate Blood Pressure 151/98 H Blood Pressure [Left Arm] Pulse Oximetry 99 97 97 12/24/24 21:31 12/24/24 21:36 12/24/24 21:39 Temperature Pulse Rate 79 Respiratory Rate Blood Pressure 154/102 H Blood Pressure [Left Arm] Pulse Oximetry 100 100 12/24/24 21:41 12/24/24 21:46 12/24/24 21:53 Temperature Pulse Rate Respiratory Rate Blood Pressure Blood Pressure [Left Arm] Pulse Oximetry 99 99 99 12/24/24 21:58 12/24/24 22:00 12/24/24 22:03 Temperature Pulse Rate 79 Respiratory Rate Blood Pressure Blood Pressure [Left Arm] Pulse Oximetry 99 100 12/24/24 22:05 12/24/24 22:11 12/24/24 22:16 Temperature Pulse Rate 73 Respiratory Rate Blood Pressure 168/84 H Blood Pressure [Left Arm] Pulse Oximetry 99 100 12/24/24 22:21 12/24/24 22:26 12/24/24 22:31 Temperature Pulse Rate 79 Respiratory Rate Blood Pressure 146/85 H Blood Pressure [Left Arm] Pulse Oximetry 97 96 98 12/24/24 22:36 12/24/24 22:38 12/24/24 22:41 Temperature Pulse Rate 78 Respiratory Rate Blood Pressure 138/83 Blood Pressure [Left Arm] Pulse Oximetry 96 95 12/24/24 22:45 12/24/24 22:46 12/24/24 22:51 Temperature Pulse Rate 83 Respiratory Rate Blood Pressure 145/89 H Blood Pressure [Left Arm] Pulse Oximetry 95 95 12/24/24 22:56 12/24/24 23:00 12/24/24 23:01 Temperature Pulse Rate 83 Respiratory Rate Blood Pressure 135/84 Blood Pressure [Left Arm] Pulse Oximetry 95 94 12/24/24 23:06 12/24/24 23:06 12/24/24 23:11 Temperature 98 F 98.0 F Pulse Rate 80 Respiratory Rate 18 Blood Pressure 135/84 Blood Pressure [Left Arm] Pulse Oximetry 95 95 93 12/24/24 23:15 12/24/24 23:16 12/24/24 23:21 Temperature Pulse Rate 85 Respiratory Rate Blood Pressure 127/81 Blood Pressure [Left Arm] Pulse Oximetry 93 92 12/24/24 23:26 12/24/24 23:30 12/24/24 23:31 Temperature Pulse Rate 88 Respiratory Rate Blood Pressure 123/76 Blood Pressure [Left Arm] Pulse Oximetry 92 93 12/24/24 23:36 12/24/24 23:41 12/24/24 23:45 Temperature Pulse Rate 89 Respiratory Rate Blood Pressure 123/77 Blood Pressure [Left Arm] Pulse Oximetry 93 92 12/24/24 23:46 12/24/24 23:51 12/24/24 23:56 Temperature Pulse Rate Respiratory Rate Blood Pressure Blood Pressure [Left Arm] Pulse Oximetry 93 93 93 12/25/24 00:00 12/25/24 00:01 12/25/24 00:06 Temperature Pulse Rate 89 Respiratory Rate Blood Pressure 119/75 Blood Pressure [Left Arm] Pulse Oximetry 93 93 12/25/24 00:11 12/25/24 00:15 12/25/24 00:17 Temperature Pulse Rate 90 Respiratory Rate Blood Pressure 136/85 Blood Pressure [Left Arm] Pulse Oximetry 93 94 12/25/24 00:22 12/25/24 00:27 12/25/24 00:32 Temperature Pulse Rate Respiratory Rate Blood Pressure Blood Pressure [Left Arm] Pulse Oximetry 93 94 93 12/25/24 00:37 12/25/24 00:42 12/25/24 00:47 Temperature Pulse Rate Respiratory Rate Blood Pressure Blood Pressure [Left Arm] Pulse Oximetry 94 95 94 12/25/24 00:54 12/25/24 00:59 12/25/24 01:04 Temperature Pulse Rate Respiratory Rate Blood Pressure Blood Pressure [Left Arm] Pulse Oximetry 98 96 95 12/25/24 01:09 12/25/24 01:14 12/25/24 01:19 Temperature Pulse Rate Respiratory Rate Blood Pressure Blood Pressure [Left Arm] Pulse Oximetry 95 95 95 12/25/24 01:24 12/25/24 01:29 12/25/24 01:34 Temperature Pulse Rate Respiratory Rate Blood Pressure Blood Pressure [Left Arm] Pulse Oximetry 95 95 95 12/25/24 01:39 12/25/24 01:44 12/25/24 01:49 Temperature Pulse Rate Respiratory Rate Blood Pressure Blood Pressure [Left Arm] Pulse Oximetry 95 95 95 12/25/24 01:54 12/25/24 01:59 12/25/24 02:04 Temperature Pulse Rate Respiratory Rate Blood Pressure Blood Pressure [Left Arm] Pulse Oximetry 95 94 95 12/25/24 02:09 12/25/24 02:14 12/25/24 02:19 Temperature Pulse Rate Respiratory Rate Blood Pressure Blood Pressure [Left Arm] Pulse Oximetry 95 95 95 12/25/24 02:24 12/25/24 02:29 12/25/24 02:34 Temperature Pulse Rate Respiratory Rate Blood Pressure Blood Pressure [Left Arm] Pulse Oximetry 95 95 95 12/25/24 02:39 12/25/24 02:44 12/25/24 02:49 Temperature Pulse Rate Respiratory Rate Blood Pressure Blood Pressure [Left Arm] Pulse Oximetry 95 95 95 12/25/24 02:54 12/25/24 02:59 12/25/24 03:04 Temperature Pulse Rate Respiratory Rate Blood Pressure Blood Pressure [Left Arm] Pulse Oximetry 95 95 95 12/25/24 03:06 12/25/24 03:07 12/25/24 03:07 Temperature 98.6 F 98.6 F Pulse Rate 91 93 Respiratory Rate 18 Blood Pressure 126/70 126/70 Blood Pressure [Left Arm] Pulse Oximetry 95 12/25/24 03:09 12/25/24 03:14 12/25/24 03:19 Temperature Pulse Rate Respiratory Rate Blood Pressure Blood Pressure [Left Arm] Pulse Oximetry 95 95 95 12/25/24 03:24 12/25/24 03:29 12/25/24 03:34 Temperature Pulse Rate Respiratory Rate Blood Pressure Blood Pressure [Left Arm] Pulse Oximetry 95 95 96 12/25/24 03:39 12/25/24 03:44 12/25/24 03:49 Temperature Pulse Rate Respiratory Rate Blood Pressure Blood Pressure [Left Arm] Pulse Oximetry 96 96 96 12/25/24 03:54 12/25/24 03:59 12/25/24 04:04 Temperature Pulse Rate Respiratory Rate Blood Pressure Blood Pressure [Left Arm] Pulse Oximetry 96 96 96 12/25/24 04:09 12/25/24 04:14 12/25/24 04:19 Temperature Pulse Rate Respiratory Rate Blood Pressure Blood Pressure [Left Arm] Pulse Oximetry 96 95 95 12/25/24 04:24 12/25/24 04:29 12/25/24 04:34 Temperature Pulse Rate Respiratory Rate Blood Pressure Blood Pressure [Left Arm] Pulse Oximetry 93 93 93 12/25/24 04:39 12/25/24 04:44 12/25/24 04:49 Temperature Pulse Rate Respiratory Rate Blood Pressure Blood Pressure [Left Arm] Pulse Oximetry 93 93 93 12/25/24 04:54 12/25/24 04:57 12/25/24 05:08 Temperature Pulse Rate Respiratory Rate Blood Pressure Blood Pressure [Left Arm] Pulse Oximetry 93 97 99 12/25/24 05:09 12/25/24 05:09 12/25/24 05:13 Temperature 97.9 F 97.9 F Pulse Rate 130 H 135 H Respiratory Rate 18 Blood Pressure 159/96 H 159/96 H Blood Pressure [Left Arm] Pulse Oximetry 99 100 12/25/24 05:18 12/25/24 05:23 12/25/24 06:29 Temperature Pulse Rate Respiratory Rate Blood Pressure Blood Pressure [Left Arm] Pulse Oximetry 100 100 100 12/25/24 06:30 12/25/24 06:35 12/25/24 06:40 Temperature Pulse Rate 94 Respiratory Rate Blood Pressure 121/72 Blood Pressure [Left Arm] Pulse Oximetry 98 100 97 12/25/24 06:45 12/25/24 06:50 12/25/24 06:55 Temperature Pulse Rate Respiratory Rate Blood Pressure Blood Pressure [Left Arm] Pulse Oximetry 97 97 96 12/25/24 07:00 12/25/24 07:05 12/25/24 07:10 Temperature Pulse Rate Respiratory Rate Blood Pressure Blood Pressure [Left Arm] Pulse Oximetry 97 96 96 12/25/24 07:15 12/25/24 07:20 12/25/24 07:25 Temperature Pulse Rate Respiratory Rate Blood Pressure Blood Pressure [Left Arm] Pulse Oximetry 96 96 96 12/25/24 07:30 12/25/24 07:35 12/25/24 07:40 Temperature Pulse Rate Respiratory Rate Blood Pressure Blood Pressure [Left Arm] Pulse Oximetry 95 94 91 12/25/24 07:45 12/25/24 07:49 12/25/24 07:51 Temperature Pulse Rate 93 Respiratory Rate Blood Pressure 139/86 Blood Pressure [Left Arm] Pulse Oximetry 96 97 12/25/24 07:54 12/25/24 07:57 12/25/24 07:59 Temperature 98.7 F Pulse Rate 91 Respiratory Rate 18 Blood Pressure 139/86 Blood Pressure [Left Arm] Pulse Oximetry 94 96 92 12/25/24 08:04 12/25/24 08:09 12/25/24 08:14 Temperature Pulse Rate Respiratory Rate Blood Pressure Blood Pressure [Left Arm] Pulse Oximetry 90 90 90 12/25/24 08:19 12/25/24 08:24 12/25/24 08:29 Temperature Pulse Rate Respiratory Rate Blood Pressure Blood Pressure [Left Arm] Pulse Oximetry 90 90 90 12/25/24 08:34 12/25/24 08:39 12/25/24 08:44 Temperature Pulse Rate Respiratory Rate Blood Pressure Blood Pressure [Left Arm] Pulse Oximetry 90 91 90 12/25/24 08:49 12/25/24 08:54 12/25/24 08:59 Temperature Pulse Rate Respiratory Rate Blood Pressure Blood Pressure [Left Arm] Pulse Oximetry 91 92 90 12/25/24 09:04 12/25/24 09:09 12/25/24 09:14 Temperature Pulse Rate Respiratory Rate Blood Pressure Blood Pressure [Left Arm] Pulse Oximetry 93 93 93 12/25/24 09:19 12/25/24 09:24 12/25/24 09:29 Temperature Pulse Rate Respiratory Rate Blood Pressure Blood Pressure [Left Arm] Pulse Oximetry 94 94 94 12/25/24 09:34 12/25/24 09:39 12/25/24 09:44 Temperature Pulse Rate Respiratory Rate Blood Pressure Blood Pressure [Left Arm] Pulse Oximetry 93 94 96 12/25/24 09:52 12/25/24 09:57 12/25/24 09:59 Temperature Pulse Rate Respiratory Rate Blood Pressure Blood Pressure [Left Arm] Pulse Oximetry 98 97 99 12/25/24 10:04 12/25/24 10:09 12/25/24 10:14 Temperature Pulse Rate Respiratory Rate Blood Pressure Blood Pressure [Left Arm] Pulse Oximetry 99 98 98 12/25/24 10:19 12/25/24 10:24 12/25/24 10:29 Temperature Pulse Rate 96 Respiratory Rate Blood Pressure 157/92 H Blood Pressure [Left Arm] Pulse Oximetry 98 99 98 12/25/24 10:29 12/25/24 10:34 12/25/24 10:39 Temperature 98.5 F Pulse Rate 100 Respiratory Rate 18 Blood Pressure 157/92 H Blood Pressure [Left Arm] Pulse Oximetry 97 98 98 12/25/24 10:40 12/25/24 10:45 12/25/24 10:50 Temperature Pulse Rate Respiratory Rate Blood Pressure Blood Pressure [Left Arm] Pulse Oximetry 98 98 98 12/25/24 10:55 12/25/24 11:00 12/25/24 11:05 Temperature Pulse Rate Respiratory Rate Blood Pressure Blood Pressure [Left Arm] Pulse Oximetry 99 98 100 12/25/24 11:10 12/25/24 11:15 12/25/24 11:20 Temperature Pulse Rate Respiratory Rate Blood Pressure Blood Pressure [Left Arm] Pulse Oximetry 97 98 99 12/25/24 12:15 Temperature 98.0 F Pulse Rate 102 H Respiratory Rate 18 Blood Pressure 150/99 H Blood Pressure [Left Arm] Pulse Oximetry 98 H&P: Results Labs Labs: Short CBC 12/24/24 12/25/24 Range/Units 15:52 04:51 WBC 11.5 H 8.8 (4.5-10.0) K/mm3 Hgb 12.7 13.9 (12.0-15.0) g/dL Hct 36.3 L 40.8 (37.0-47.0) % Plt Count 269 297 (150-375) k/mm3 BMP 12/24/24 12/25/24 16:01 04:51 Sodium 136 L 134 L Potassium 3.7 3.5 Chloride 106 101 Carbon Dioxide 19 L 21 L BUN 9 8 Creatinine 0.52 L 0.56 L Glucose 136 H 156 H Calcium 9.2 8.4 Liver Function 12/24/24 12/25/24 Range/Units 16:01 04:51 Total Bilirubin 0.3 0.6 (0.2-1.3) mg/dL AST 39 H 45 H (14-36) U/L ALT 28 33 (6-35) U/L Alkaline Phosphatase 122 129 H (38-126) U/L Albumin 3.9 4.1 (3.5-5.1) g/dL
--- NOTE | 2024-12-25 14:31 | PC.NURSE ---
Primary RN stated to this RN that mother is interested in putting to breast. Mother is currently on Mag Sulfate due to Eclampsia and has her sister at the bedside. Upon entering room, introductions were made, then consulted with patient to assess needs related to . Mother states that she did breastfeed her 12 year old but she isn't comfortable putting to breast independently. Mother attempted to put in cross cradle position. Her breast are large, this RN discussed positioning infant in the football position for easier access to the breast. Assisted mother in placing infant in football position. Once infant was positioned appropriately, infant was able to latch on the right breast. Several swallows were noted and mother is notably leaking milk. Encouraged mother to continue supplementing infant after due to MD order for 30cc minimum feeding requirements. Additionally, mother states that she would like to begin pumping. A breast pump was provided through her insurance ([employer] pump) and instructions given on cleaning, care, usage, that there should be no pain. Patient was assessed for correct placement, flange size, to pump for comfort and nipple stretching/stimulation for adequate milk production every 3 hours (8 times in 24 hours) 1-2 times at night. Reported to the Primary RN.
--- NOTE | 2024-12-25 17:14 | PC.NURSE ---
Reported critical blood pressure of 161/[address] Luke. Also informed MD that patient had just taken her evening dose of Procardia Orders to repeat blood pressure in 2 hours
[2024-12-25] MEDS: ZOLPIDEM TARTRATE (*CRX) 5 MG TABLET PO (23:45)
[2024-12-26] VITALS (7 sets, daily range): BP systolic 120–156; BP diastolic 68–107; PULSE 95–99; RESP 16; TEMP 36.7–37.1; O2SAT 97–98
[2024-12-26] MEDS: ACETAMINOPHEN 500 MG TABLET 1000 MG PO ×2 (05:26→13:38)
[2024-12-26] MEDS: IBUPROFEN 600 MG TABLET PO ×2 (05:26→13:38)
[2024-12-26 06:23] LABS: Alanine Aminotransferase 43 U/L (6-35); Albumin Level 4.2 g/dL (3.5-5.1); Alkaline Phosphatase 127 U/L (38-126); Anion Gap 11 mmol/L (4-12); Aspartate Amino Transferase 51 U/L (14-36); Bilirubin,Total 0.7 mg/dL (0.2-1.3); Blood Urea Nitrogen 12 mg/dL (7-17); Calcium 8.2 mg/dL (8.4-10.2); Carbon Dioxide 19 mmol/L (22-30); Chloride 105 mmol/L (98-107); Estimated CRCL calculation 154 ml/min; Estimated Glomerular Filt Rate > 60; Glucose 116 mg/dL (65-110); Potassium 3.6 mmol/L (3.4-5.0); Sodium 135 mmol/L (137-145); Total Protein 7.9 g/dL (6.3-8.2)
--- NOTE | 2024-12-26 07:58 | P.PNOB_ITS ---
OB - PN: Subj Subjective Date/time seen: 12/26/24 07:58 Interval history: Labile blood pressures since Magnesium discontinued, denies headache, scotomata or RUQ pain. She does feel anxiousness. Denies chest pain or SOB. OB - PN: Obj Data Labs 12/25/24 04:51 12/26/24 05:06 Labs: Laboratory Results - last 24 hr 12/26/24 05:06 Sodium 135 L Potassium 3.6 Chloride 105 Carbon Dioxide 19 L Anion Gap 11 BUN 12 Creatinine 0.60 L Estim Creat Clear Calc 154 Estimated GFR > 60 Glucose 116 H Calcium 8.2 L Total Bilirubin 0.7 AST 51 H ALT 43 H Alkaline Phosphatase 127 H Total Protein 7.9 Albumin 4.2 OB - PN A/P Assessment and Plan (1) Pre-eclampsia, : Code(s): O14.95 - Unspecified pre-eclampsia, complicating the puerperium Status: Acute Assessment and Plan: No severe symptoms. Blood pressures elevated, improving. Continue to monitor. If remain non sever range anticipate discharge later today. Time Spent With Patient Time: Total time spent is greater than 50% in coordination of care (as documented) at patient's floor/unit and/or counseling patient: Exam 2 Const: General: comfortable and no acute distress Resp: Effort & Inspection: normal respiratory effort Cardio: Rhythm: regular rhythm GI: GI Palp: No abdominal tenderness Neuro: General: patient oriented x3 Extrem: General: normal to inspection and no calf tenderness
[2024-12-26] MEDS: LABETALOL HCL 100 MG TABLET 200 MG PO (08:45)
[2024-12-26] MEDS: SERTRALINE HCL 50 MG TABLET PO (08:45)
--- NOTE | 2025-01-06 11:48 | P.DS_ITS ---
DS: Admitting Diagnosis Discharge Date 12/26/24 Admitting Diagnosis hypertension DS: Discharge Diagnosis Discharge Diagnosis (1) hypertension: Code(s): O16.5 - Unspecified maternal hypertension, complicating the puerperium Status: Acute OB - DS: Summary Hospital Course Hospital Course: She was admitted for severe range blood pressures. She received IV Magnesium for 24 hours. Blood pressures improved to non severe range on oral medication. She was discharged to home on oral antihypertensives. OB Procedures : None OB Procedures Intrapartum: Other OB Procedures: : None Peripartum Data complications: other (hypertension) Status at Discharge Functional status at discharge: independent ambulation Time Spent with Patient Time attestation: Total time spent providing and/or coordinating discharge services: Exam Const: General: comfortable and no acute distress Resp: Effort & Inspection: normal respiratory effort Cardio: Rhythm: regular rhythm GI: GI Palp: No abdominal tenderness Neuro: General: patient oriented x3 Extrem: General: normal to inspection and no calf tenderness Discharge Plan Discharge Attending physician on discharge: rYn Luke Consulting providers: Teri Kennedy; Catrachito Menard Discharging Clinician: Yrn Luke Anticipated Discharge Date/Time: 12/26/24 16:21 Patient Disposition: Home Activity: pelvic rest Diet: regular Patient Instructions: Preeclampsia and Eclampsia After Delivery (GEN) Patient Language: Filipino Stand Alone Forms: General Discharge Information Follow-up/Referrals: Yrn Luke MD [Physician, DEHYDRATOR TENDER] - 1 Week Referral Note: Call for appointment Discharge Medications: New labetalol 100 mg Tablet 100 mg PO Q12HR Qty: 60 0RF sertraline [Zoloft] 50 mg Tablet 50 mg PO QAM Qty: 30 1RF nifedipine [Procardia XL] 60 mg tablet extended release 24hr 60 mg PO DAILY Qty: 30 0RF Continued DHA 200 mg capsule 200 mg PO DAILY valacyclovir [Valtrex] 500 mg tablet 500 mg PO DAILY Qty: 30 1RF Discontinued escitalopram oxalate [Lexapro] 10 mg tablet 10 mg PO DAILY Qty: 30 1RF nifedipine [Procardia XL] 30 mg tablet extended release 24hr 30 mg PO DAILY Qty: 30 0RF Date of admission: 12/24/24 17:28 Primary Care Provider: PHYSICIAN,[employer] Admitting Provider: Yrn Luke Attending physician on admission: Yrn Luke Condition: Stable
== END 2024-12-26 19:00 | disposition home or self-care (01) | DRG 561 ==
LOC: ANHOBOP 17:36 → ANHOBPP 17:36 → ANHOB2 12-25 11:34
PROVIDERS: Obstetrics & Gynecology; Admitting Provider Obstetrics & Gynecology; Visit Provider Obstetrics & Gynecology
DX: O14.95 Unspecified pre-eclampsia, complicating the puerperium (principal)
CPT/HCPCS: 36415; 76705; 80053; 84550; 85025; 99199; A9270; J0360; J1938; J3475; J7120

== ENCOUNTER 2025-01-29 13:05 | Emergency (ER) | payer OTHER, SELFPAY ==
--- NOTE | 2025-01-29 13:10 | ED.URI ---
HPI - URI/Sore Throat General Chief Complaint: Upper Respiratory Infection Stated Complaint: Cough Time Seen by Provider: 01/29/25 13:35 Source: patient and RN notes reviewed Mode of arrival: ambulatory Limitations: no limitations History of Present Illness HPI Narrative: 39-year-old female presents with concern of for 5 day history of runny nose, stuffy nose, sneezing, sore throat cough. She denies fever, body aches, chills, sweats. She denies diarrhea or vomiting. MD elicited complaint: cough and sore throat Related Data Home Medications ?Medication ?Instructions ?Recorded ?Confirmed ?Last Taken ?Type docosahexaenoic acid 200 mg 200 mg PO DAILY 07/10/24 01/21/25 12/20/24 History capsule ( DHA) Allergies Allergy/AdvReac Type Severity Reaction Status Date / Time Sulfa (Sulfonamide Allergy Mild Hives Verified 01/29/25 13:12 Antibiotics) Review of Systems Review of Systems: CONSTITUTIONAL: Denies malaise, chills, sweats, or fever. EYES: Denies visual changes, redness, or discharge. ENT: Reports rhinorrhea, congestion, sneezing and sore throat. CARDIOVASCULAR: Denies chest pain, palpitations, or edema. RESPIRATORY: Reports cough. Denies dyspnea. GASTROINTESTINAL: Denies abdominal pain, nausea, vomiting, diarrhea SKIN: Denies rash or itching. MUSCULOSKELETAL: Denies myalgia. NEUROLOGIC: Denies headache. All systems reviewed & are unremarkable except as noted in HPI and below PMFSH Past Medical History Medical History and not yet delivered Anxiety and depression Family history of hemochromatosis HSV-2 (herpes simplex virus 2) infection Vaginal delivery Gestational HTN ADHD Anxiety ADD (attention deficit disorder) Surgical History Surgical History Hx of tonsillectomy Family History Family History Grandparent Heart disease Social History Social History Smoking status: Current every day smoker Tobacco type: e-cigarettes/vaping Second hand tobacco smoke exposure: Yes Smoking end date: 05/12/22 Alcohol intake: former Substance use: former Substance use type: marijuana Lack of Transportation: No Lack of Food: Never True Current Housing: I Have Housing Concerned About Future Housing: No Difficulty Paying Gas/Electric Bills: No Difficulty Paying for Meds: No Currently Unemployed: No Education: High School Diploma/GED Difficulty w/ Childcare or Family Care: No Living arrangements: with family Additional living arrangements comments: Grandparents Occupation/Education: occupation Additional occupation/education comments: [employer] Gender identity (if verbalized by the patient): Female Sexual Orientation (if Verbalized by the Patient): Bisexual Spiritual care concerns: No Agree to blood products: Yes Comments At time of signature, agree with nursing past medical, surgical, social and family history. There is no relevant family history pertinent to the presenting complaint Exam Narrative: GENERAL: Well-appearing, well-nourished, and in no acute distress. HEAD: Normocephalic EYES: PERRLA, conjunctivae clear ENT: Nares clear. Mucous membranes moist. TM pearly benito with sharp light reflex bilaterally; no tragal tenderness. Oropharynx not erythematous without lesions. Tonsils not enlarged and without exudate, no drooling, no hoarseness, no trismus, uvula midline. NECK: Supple. No lymphadenopathy CHEST: Clear to auscultation, breath sounds equal. No wheezing, rhonchi, rales, or stridor. No respiratory distress, speaks in full sentences. HEART: Regular rate and rhythm. No murmur heard. SKIN: Warm, dry, no rash. NEURO: Alert and oriented x3. PSYCH: Normal mood and affect Course Course Level of Care: Express Care Visit MDM MDM Narrative Medical decision making narrative: I evaluated this patient in the express care. History is obtained from patient who is an independent historian and physical exam was performed.? Available medical records were reviewed. ? Exam findings and relevant testing show no acute concerns or changes; patient is non-toxic appearing and is in no distress. ? Differential diagnosis and treatment plan were discussed with the patient. Patient agrees with discussion and after shared medical decision making agrees with plan of care. All questions were answered to the patient's satisfaction. Patient is appropriate for outpatient treatment and follow-up. Differential Diagnosis Differential Diagnosis: Differential diagnostic considerations for upper respiratory infection include upper respiratory infection, croup, otitis media, sinusitis, viral infection, bronchitis, influenza, pharyngitis, strep, uvulitis. Discharge Plan Discharge Clinical Impression: Cold virus Patient Disposition: Home Condition: Stable Instructions: Upper Respiratory Infection (ED) Additional Instructions: Viral illness may last between 7-21 days; antibiotics do not cure viral illness and are NOT recommended at this time. Recommend antihistamine such as Benadryl at night time and Zyrtec or Maribel during the day Cough syrup may cause drowsiness; avoid driving or take it at night time. Also, recommend symptomatic treatment includes: rest, fluids, and increase humidity of the air at home. Recommend Acetaminophen as directed on the bottle to reduce fever, pain, headache. Avoid smoking/second-hand smoke. Please schedule a follow-up visit with your personal physician for further evaluation and treatment within 3-5days. If your symptoms persist, change or worsen significantly before you can contact your personal physician then please, without delay, go to the emergency department for further evaluation. Patient Language: Ukrainian Prescriptions: New promethazine-DM 6.25-15 mg/5 mL syrup 5 ml PO Q4-6H PRN (Reason: cough) Qty: 120 0RF ipratropium bromide 21 mcg (0.03 %) spray,non-aerosol 2 spray NASAL TID PRN (Reason: nasal drainage) Qty: 30 0RF Rx Instructions: administer into each nostril pseudoephedrine HCl [12 Hour Decongestant] 120 mg tablet extended release 120 mg PO Q12H PRN (Reason: nasal congestion) Qty: 12 0RF No Action DHA 200 mg capsule 200 mg PO DAILY valacyclovir [Valtrex] 500 mg tablet 500 mg PO DAILY Qty: 30 1RF labetalol 100 mg Tablet 100 mg PO Q12HR Qty: 60 0RF sertraline [Zoloft] 50 mg Tablet 50 mg PO QAM Qty: 30 1RF (DME) blood pressure test kit-large Kit See Rx Instructions .Route Qty: 1 0RF Rx Instructions: As directed Follow-up/Referrals: PHYSICIAN,[facility] [Primary Care Provider, Internal Medicine] Time of Disposition: 13:44
[2025-01-29 13:15] VITALS: BP 131/72; PULSE 87; RESP 18; TEMP 36.6; O2SAT 99
[2025-01-29 13:37] LABS: EDSTREPNEGPOS1 Negative (Negative)
[2025-01-29 13:40] LABS: EDCOVIDSCREEN Negative (Negative); EDINFLUASCREEN Negative (Negative); EDINFLUBSCREEN Negative (Negative)
--- OUTSIDE RECORDS SUMMARY | 2025-01-29 14:12 | XMS_ITS | Clinical Summary ---
Author Organization [facility] Address [facility] [place] [address] Care Team Providers Care Children'S Entertainer Name Role Phone None, Provider MD Primary [...] patient's age to complete this topic Insurance RONAN Care Teams Children'S Entertainer Relationship Specialty Start Date End Date None, Provider, MD PCP - General UNKNOWN PHYSICIAN SPECIALTY 06/07/23
--- OUTSIDE RECORDS SUMMARY | 2025-01-29 14:12 | XMS_ITS | Data Portability ---
Author Organization [facility], Telehealth (patients home) Address [address] [place] [address] Assessment Encounter Date Assessment Date Assessment LastModified by Organization Details LastModified Time 11/08/2023 11/08/2023 Here for evaluation of MDD. also would like treated for ADHD. History of ADHD- will have records sent from previous provider ASRS-V1.1 positive for ADHD PHQ9-13 mod MONICO 7-3 none [email or web address] Not available 11/08/2023 14:43:11 Plan of Treatment Reminders Order Date Submit Date Provider Last Modified By Organization Details Last Modified Time Details Appointments None recorded. Lab None recorded. Referral None recorded. Procedures None recorded. Surgeries None recorded. Imaging None recorded. Medication Orders Lexapro 5 mg tablet 024 [id number], [address], [place], [id number], 14:43:43 Patient TargetsNo targets recorded. Patient Instructions Encounter Date Encounter Id Patient Instructions Last Modified By Organization Details Last Modified Time 11/08/2023 [id number] depression treatment: care instructions Not available 11/08/2023 14:43:35 Reason for Referral None Reported. Problems Name Problem SNOMED Code Status Onset Date Resolution Date Notes Provider Name and Address Organization Details Recorded Time Moderate recurrent major depression 70390105 Active 2023 Razia Nunez, QI, PMHNP-BC [address], [place], [address], [facility] 12:00:52 Attention deficit hyperactivity disorder, combined type 55841130 Active 2023 Razia Nunez, QI, PMP- [address], [place], [address], [facility] 4 14:38:17 Problem Notes None recorded. Procedures Surgical History Date Name Laterality Status Provider Name and Address Organization Details Recorded Time [facility] 11:06:19 Imaging Results None recorded. [...] Not available Not available Not available 11/08/2023 [id number] [facility] 4 11:02:12 Medications Name Sig Start [...] Updated DateTime 11/08/2023 172.72 cm 39.8 kg/m2 937385.2 g 129/86 mm[Hg] Thuy Tovar [facility] 11/08/2023 11:01:21 Social History Question Answer Notes LastModified by Organizat Kaiam Details LastModified Time Tobacco Smoking Status Current Every Day Smoker Thuy Tovar [facility] 11/08/2023 11:05:33 What Is Your Level Of Caffeine Consumption? Occasional [email or web address] Information not available 11/08/2023 Which Illicit Or Recreational Drugs Have You Used? MJ [email or web address] Information not available 11/08/2023 Are There Any Guns Present In Your Home? No [email or web address] Information not available 11/08/2023 Do You Feel Safe In Your Home? Yes [email or web address] Information not available 11/08/2023 Do You Have Any Future Plans To Get ? No, I Don't Want To Become [email or web address] Information not available 11/08/2023 Sex: Unknown Functional Status Question Answer Note LastModified by Organizat [employer] Details LastModified Time Do you use any illicit or recreational drugs? Yes [email or web address] Information not available 11/08/2023 Do you or have you ever used any other forms of tobacco or nicotine? Yes [email or web address] Information not available 11/08/2023 What is your level of alcohol consumption? None [email or web address] Information not available 11/08/2023 Do you or have you ever used e-cigarettes or vape? Current user of electronic cigarettes [email or web address] Information not available 11/08/2023 What is your exercise level? None [email or web address] Information not available 11/08/2023 Mental Status Question Answer Note LastModified by Organization D etails LastModified Time Do you feel stressed (tense, restless, nervous, or anxious, or unable to sleep at night)? [id number] [email or web address] Information not available 11/08/2023 Family History Relationship Description Onset Age of this Age Resolved Age Notes LastModified by Organization Details LastModified Time Maternal Grandmother Congestive heart failure [email or web address] Not available 2023 11:04:20 Medical History Condition [...] CNM, PMP- Main Office [address] [place] [address] 11/08/2023 10:53:55 11/13/2023 10:47:16 Moderate recurrent major depression 91082207 F33.1 start Lexapro 5mg dailyretur n to office in 4 weeks Attention deficit hyperactivity disorder, combined type 08267374 F90.2 Health Concerns Section Related Observation LastModified by Organization Detai ls LastModified Time None Recorded Concern Status LastModified by Organization Details LastModified Time None Recorded Advance Directives Directive None Recorded Payers Insurance Date Sequence Insurance Name Policy Number Policy De La Rosa Covered Member ID De La Rosa Member ID Guarantor Name 12/09/2023 1 [facility] ON OR AFTER 08/27/20 (MEDICAID REPLACEMENT - HMO) Anu Lees [id number] Anu Lees Notes Date Note Type Note [...] Razia Nunez, QI, PMHNP- [address], [place], [address], [place] [facility] 11/08/2023 14:47:26 OBGyn Episode No OBEpisode recorded.
== END 2025-01-29 13:46 | disposition home or self-care (01) ==
PROVIDERS: Emergency Provider Nurse Practitioner
DX: J00 Acute nasopharyngitis [common cold] (principal); Z20.822 Contact with and (suspected) exposure to COVID-19; F17.290 Nicotine dependence, other tobacco product, uncomplicated; F41.9 Anxiety disorder, unspecified; F32.A Depression, unspecified
CPT/HCPCS: 87081; 87426; 87804; 87880; 99213; G0463